=== PATIENT | female | born 1945 | race African-American/Black ===

== ENCOUNTER 2017-01-06 16:18 | Emergency (ER) | payer MEDICARE, MEDICAID ==
[~2017-01-06] VITALS: Ht 165.1 cm; Wt 92.1 kg
[2017-01-06] MEDS ORDERED: Tetracaine 0.5% Opth Soln RIGHT EYE ONE (16:30)
[2017-01-06] MEDS ORDERED: Morphine Sulfate 4mg/ml Inj IVP ONE ×2 (16:30→18:15)
[2017-01-06 16:48] VITALS: BP 193/81
[2017-01-06 16:59] LABS: BASOPHILS % (AUTO) 0.6 % (0.0-2.0); EOSINOPHILS % (AUTO) 0.8 % (0.0-3.0); LYMPHOCYTES % (AUTO) 24.1 % (20.0-45.0); MEAN CORPUSCULAR HEMOGLOBIN 31.1 PG (27.0-31.0); MEAN CORPUSCULAR VOLUME 92 FL (80-99); MEAN PLATELET VOLUME 10.5 FL (6.5-10.1); MONOCYTES % (AUTO) 6.9 % (1.0-10.0); NEUTROPHILS % (AUTO) 67.6 % (45.0-75.0); PLATELET COUNT 143 K/UL (150-450); RED BLOOD COUNT 4.14 M/UL (4.20-5.40); RED CELL DISTRIBUTION WIDTH 12.9 % (11.6-14.8)
[2017-01-06 17:07] LABS: INR 0.9 (0.9-1.1); PROTHROMBIN TIME 9.9 SEC (9.30-11.50)
[2017-01-06 17:12] LABS: TROPONIN I < 0.30 ng/mL (<=0.30)
[2017-01-06 17:13] LABS: ALANINE AMINOTRANSFERASE 10 U/L (3-33); ALBUMIN/GLOBULIN RATIO 1.4 (1.0-2.7); ANION GAP 15 (5-15); ASPARTATE AMINO TRANSFERASE 14 U/L (5-40); CALCIUM 9.4 mg/dL (8.6-10.2); CARBON DIOXIDE 27 mEQ/L (20-30); CHLORIDE 99 mEQ/L (98-107); CREATININE 0.9 mg/dL (0.5-0.9); HEMOLYSIS 4; POTASSIUM 3.6 mEQ/L (3.4-4.9); SODIUM 141 mEQ/L (135-145); TOTAL PROTEIN 6.9 g/dL (6.6-8.7)
[2017-01-06] MEDS ORDERED: Fluorescein Strips ONE (17:17)
[2017-01-06 17:23] LABS: CKMB 1.6 ng/mL (< 3.8)
[2017-01-06] MEDS ORDERED: Fluorescein Strips BOTH EYES ONE (17:30)
[2017-01-06] MEDS ORDERED: Pred Forte 1% Opth Susp 1ml RIGHT EYE ONE (18:00)
[2017-01-06] MEDS ORDERED: acetaZOLAMIDE 500mg Inj IVP ONE (18:00)
[2017-01-06 18:48] VITALS: BP 177/81
[2017-01-06] MEDS ORDERED: Maxitrol Opth Oint 3.5gm RIGHT EYE ONE (19:00)
[2017-01-06] MEDS ORDERED: NORCO 5-325 TA1 EACH ORAL (19:16)
[2017-01-06 19:41] VITALS: BP 177/81
--- NOTE | 2017-01-07 08:32 | Emergency Room Report ---
History of Present Illness General Chief Complaint: Pain Source: EMS Present Illness HPI 71-year-old female presents to ED with right eye pain. Patient brought in by ambulance, crying in pain. Patient states that in end of November she had cataract surgery on the right eye. Patient states that she has had pain since the surgery. States that the eye drops are not helping. Pain is a 10 out of 10, throbbing, nonradiating. Patient states her vision is blurry. No aggravating or relieving factors. Denies any other associated symptom Allergies: Coded Allergies: No Known Allergies (Unverified , 01/06/17) Patient History Past Medical History: HTN Past Surgical History: none Pertinent Family History: none Social History: Denies: alcohol use, drug use, smoking Now: No Immunizations: UTD Reviewed Nursing Documentation: PMH: Agreed, PSxH: Agreed Nursing Documentation-PMH Past Medical History: No History, Except For Hx Cardiac Problems: Yes - [place] x 2 in 2013 Hx Hypertension: Yes Review of Systems All Other Systems: negative except mentioned in HPI Physical Exam Vital Signs Date Time Temp Pulse Resp B/P Pulse Ox O2 Delivery O2 Flow Rate FiO2 01/06/17 16:12 98.2 69 17 193/81 98 Room Air Sp02 EP Interpretation: reviewed, normal General Appearance: alert, GCS 15, non-toxic, moderate distress Head: normocephalic Eyes: right eye other - injected conjunctiva. contact lens covering eye, left eye EOMI, left eye PERRL, left eye normal inspection ENT: normal ENT inspection Neck: normal inspection Respiratory: normal inspection Cardiovascular #1: normal inspection Gastrointestinal: normal inspection Rectal: deferred Genitourinary: no CVA tenderness Musculoskeletal: normal inspection Neurologic: alert, oriented x3, responsive, motor strength/tone normal, sensory intact, speech normal Psychiatric: normal inspection Skin: normal inspection Lymphatic: normal inspection Medical Decision Making Diagnostic Impression: Primary Impression: Eye pain Qualified Codes: H57.11 - Ocular pain, right eye Additional Impression: S/P cataract surgery Qualified Codes: Z98.41 - Cataract extraction status, right eye ER Course 71-year-old female presents to ED complaining of right eye pain. Status post cataract surgery Differential-acute angle glaucoma, conjunctivitis, corneal abrasion Patient placed on stretcher. After initial history, physical exam reveals an elderly female in mild distress. On exam there is an injected right eye. I am unable to adequately visualize the cornea. I spoke to Dr. Sang Eddy who performed the cataract surgery. Recommended that I check for corneal abrasion Apply tetracaine and fluorescein. However I was unable to identify any corneal abrasion Dr Eddy recalls that patient had a followup appointment after the surgery in which he noted a corneal abrasion. He placed the patient on prednisone drops, antibiotics drops and placed a contact lens cover dressing over the right cornea which is why I am unable to adequately visualize for any corneal abrasion Recommends that we check for ocular pressures. However patient is in extreme pain. I ordered acetazolamide IV and predforte drops On reassessment the pain has markedly improved. I did check ocular pressures at that time which were in the 20s Discussed case with Dr Eddy; he believes the patient can be discharged at this time prompt followup in the morning Placed Maxitrol ointment over the eye and applied an eye patch. Diagnoses-eye pain, status post cataract surgery Stable and discharged to home with prescription for [place]. Followup with ophthalmology. Return to ED if symptoms recur or worsen Labs Test 01/06/17 16:40 White Blood Count 9.0 K/UL (4.8-10.8) Red Blood Count 4.14 M/UL (4.20-5.40) Hemoglobin 12.9 G/DL (12.0-16.0) Hematocrit 37.9 % (37.0-47.0) Mean Corpuscular Volume 92 FL (80-99) Mean Corpuscular Hemoglobin 31.1 PG (27.0-31.0) Mean Corpuscular Hemoglobin Concent 34.0 G/DL (32.0-36.0) Red Cell Distribution Width 12.9 % (11.6-14.8) Platelet Count 143 K/UL (150-450) Mean Platelet Volume 10.5 FL (6.5-10.1) Neutrophils (%) (Auto) 67.6 % (45.0-75.0) Lymphocytes (%) (Auto) 24.1 % (20.0-45.0) Monocytes (%) (Auto) 6.9 % (1.0-10.0) Eosinophils (%) (Auto) 0.8 % (0.0-3.0) Basophils (%) (Auto) 0.6 % (0.0-2.0) Prothrombin Time 9.9 SEC (9.30-11.50) Prothromb Time International Ratio 0.9 (0.9-1.1) Activated Partial Thromboplast Time 26 SEC (23-33) Sodium Level 141 mEQ/L (135-145) Potassium Level 3.6 mEQ/L (3.4-4.9) Chloride Level 99 mEQ/L (98-107) Carbon Dioxide Level 27 mEQ/L (20-30) Anion Gap 15 (5-15) Blood Urea Nitrogen 15 mg/dL (7-23) Creatinine 0.9 mg/dL (0.5-0.9) Estimat Glomerular Filtration Rate mL/min (>60) Glucose Level 109 mg/dL (74-106) Calcium Level 9.4 mg/dL (8.6-10.2) Total Bilirubin 0.2 mg/dL (0.0-1.2) Aspartate Amino Transf (AST/SGOT) 14 U/L (5-40) Alanine Aminotransferase (ALT/SGPT) 10 U/L (3-33) Alkaline Phosphatase 70 U/L (35-104) Total Creatine Kinase 88 U/L (26-140) Creatine Kinase MB 1.6 ng/mL (< 3.8) Creatine Kinase MB Relative Index 1.8 Troponin I < 0.30 ng/mL (<=0.30) Total Protein 6.9 g/dL (6.6-8.7) Albumin 4.1 g/dL (3.5-5.2) Globulin 2.8 g/dL Albumin/Globulin Ratio 1.4 (1.0-2.7) Last Vital Signs Date Time Temp Pulse Resp B/P Pulse Ox O2 Delivery O2 Flow Rate FiO2 01/06/17 19:41 98.2 62 17 177/81 98 Room Air Status: improved Disposition: HOME, SELF-CARE Condition: Stable Scripts Hydrocodone Bit/Acetaminophen 5-325* ([place] 5-325*) 1 Each Tablet 1 TAB ORAL Q6H Y for For Pain, #10 TAB 0 Refills Prov: SUZAN SALDANA M.D. 01/06/17 Referrals: SANG EDDY M.D. NOT CHOSEN GEN/,REFERRING (PCP) Patient Instructions: Corneal Abrasion, [id number] SUZAN SALDANA M.D. Jan 07, 2017 08:32
== END 2017-01-06 19:42 | disposition home or self-care (01) ==
LOC: EDBD 16:18 → EMR 19:19
DX: H57.11 Ocular pain, right eye (principal); Z98.41 Cataract extraction status, right eye; I10 Essential (primary) hypertension; I25.2 Old myocardial infarction
CPT/HCPCS: 36415; 80053; 82550; 82553; 84484; 85025; 85610; 85730; 96374; 96375; 99284; J1120; J2270

== ENCOUNTER 2017-03-11 08:57 | Inpatient (IN) | payer MEDICARE, MEDICAID ==
[~2017-03-11] VITALS: Ht 167.6 cm; Wt 92.1 kg
[~2017-03-11 08:57] MED LIST: NORCO 5-325 TA1 EACH ORAL
[2017-03-11 09:06] VITALS: BP 197/76
[2017-03-11] MEDS ORDERED: AZITHROMYCIN250 MG ORAL (09:13)
[2017-03-11 09:40] VITALS: BP 159/87
[2017-03-11] MEDS ORDERED: Morphine Sulfate 4mg/ml Inj IVP ONE ×2 (09:45→13:15)
[2017-03-11 10:39] LABS: BASOPHILS % (AUTO) 0.8 % (0.0-2.0); EOSINOPHILS % (AUTO) 1.1 % (0.0-3.0); LYMPHOCYTES % (AUTO) 21.5 % (20.0-45.0); MEAN CORPUSCULAR HEMOGLOBIN 30.1 PG (27.0-31.0); MEAN CORPUSCULAR HGB CONC 32.7 G/DL (32.0-36.0); MEAN CORPUSCULAR VOLUME 92 FL (80-99); MEAN PLATELET VOLUME 10.5 FL (6.5-10.1); MONOCYTES % (AUTO) 10.6 % (1.0-10.0); NEUTROPHILS % (AUTO) 66.1 % (45.0-75.0); PLATELET COUNT 144 K/UL (150-450); WHITE BLOOD COUNT 6.7 K/UL (4.8-10.8)
[2017-03-11 10:40] LABS: ALANINE AMINOTRANSFERASE 11 U/L (3-33); ALBUMIN/GLOBULIN RATIO 1.6 (1.0-2.7); ANION GAP 11 (5-15); ASPARTATE AMINO TRANSFERASE 13 U/L (5-40); CARBON DIOXIDE 27 mEQ/L (20-30); CHLORIDE 104 mEQ/L (98-107); CREATININE 0.8 mg/dL (0.5-0.9); HEMOLYSIS 3; POTASSIUM 3.6 mEQ/L (3.4-4.9); SODIUM 142 mEQ/L (135-145); TOTAL PROTEIN 7.1 g/dL (6.6-8.7)
[2017-03-11 11:15] VITALS: BP 165/77
--- NOTE | 2017-03-11 12:12 | Diagnostic Imaging Report ---
Indication: PAIN Technique: IV administration nonionic contrast Spiral acquisitions obtained through the phase Multiplanar reconstructions were generated. Total dose length product 602 mGycm. CTDIvol(s) 20 mGy. Radiation dose was minimized using automated exposure control Comparison: None Findings: Very questionable asymmetric slight thickening of the right earlobe as compared to the left. Otherwise, no significant superficial facial soft tissue swelling or other abnormality demonstrated. A small calcification is seen in the inferior aspect of the left parotid gland. The parotid and submandibular glands are otherwise unremarkable. No cervical mass or adenopathy demonstrated. No evidence of facial abscess. There is evidence of prior right and possibly left cataract surgery. The optic globes and retroseptal orbits are otherwise unremarkable. No evidence of significant intracranial enhancement. The sinuses are clear. Bones are intact. The visualized arteries and veins are unremarkable. Impression: Equivocal very slight thickening of the inferior right lobe as compared to the left. If real, this should be clinically evident, could indicate mild synovitis changes No other abnormality to explain stated clinical history of right ear and face pain Calcification at the inferior aspect of the left parotid gland. Of uncertain significance, could represent a small sialolith but very peripheral location makes this less likely. Could also represent a capsular calcification Incidental findings as described The CT scanner at [facility] is accredited by the [employer] and the scans are performed using protocols designed to limit radiation exposure to as low as reasonably achievable to attain images of sufficient resolution adequate for diagnostic evaluation.
--- NOTE | 2017-03-11 12:14 | Diagnostic Imaging Report ---
Indications: Headache, right face and right ear pain Technique: Spiral acquisitions obtained through the brain. Angled axial and coronal 5 x 5 mm slices were reconstructed. Total dose length product 1431 mGycm. CTDI vol(s) 70 mGy. Dose reduction achieved using automated exposure control Comparison: None Findings: There is mild age-related enlargement of ventricles and extra-axial CSF spaces. There is mild periventricular deep white matter chronic ischemic change. There is a lacunar infarct in the anterior limb of left internal capsule, age indeterminate. Normal sparks-white differentiation otherwise. Intact calvarium. Visualized orbits and sinuses are unremarkable. Impression: Negative for acute intracranial bleed or mass effect. Age indeterminate lacunar infarct anterior limb right internal capsule. Consider MRI for better characterization if clinically indicated Other mild chronic and age-related changes, as detailed above The CT scanner at [facility] is accredited by the [employer] and the scans are performed using protocols designed to limit radiation exposure to as low as reasonably achievable to attain images of sufficient resolution adequate for diagnostic evaluation.
[2017-03-11] MEDS ORDERED: Clindamycin 600mg 50 ML IVPB ONE (13:00)
[2017-03-11 14:11] VITALS: BP 146/68
[2017-03-11] MEDS ORDERED: DuoNeb 0.5-3(2.5)mg/3ml neb HHN PRN (15:30)
[2017-03-11] MEDS ORDERED: Miralax 17gm pkt ORAL PRN (15:30)
[2017-03-11] MEDS ORDERED: Nitroglycerin Subl 0.4mg tab (Bottle Of 25) SL PRN (15:30)
--- NOTE | 2017-03-11 15:55 | Emergency Room Report ---
History of Present Illness General Chief Complaint: Pain Source: Patient Present Illness HPI 71 yo F hx of htn pw R sided facial pain x 3 days. states she saw a doctor who gave her rx for azithrromycin which has not been helping. states R ear pain now spreading to head and face.+fever and chills. no blurry vision, neck pain, n/v. Allergies: Coded Allergies: No Known Allergies (Unverified , 01/06/17) Patient History Past Surgical History: none Pertinent Family History: none Nursing Documentation-[facility] Past Medical History: No History, Except For Hx Cardiac Problems: Yes - [place] x 2 in 2013 Hx Hypertension: Yes Review of Systems Constitutional: Reports: chills, fever ENT: Reports: ear pain All Other Systems: negative except mentioned in HPI Physical Exam Vital Signs Date Time Temp Pulse Resp B/P Pulse Ox O2 Delivery O2 Flow Rate FiO2 03/11/17 09:06 99.5 63 20 197/76 97 Room Air Sp02 EP Interpretation: normal General Appearance: normal inspection, well appearing, alert, GCS 15, non-toxic , moderate distress - appears to be in pain Head: normocephalic, atraumatic Eyes: bilateral eye EOMI, bilateral eye PERRL, bilateral eye normal inspection ENT: other - R ear with effusion/tm erythematous/bulging. TTP R mastoid. TTP R face with mild swelling. 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 facial ceelulitis vs. deep facial infection vs mastoiditis PLAN labs paincontrol IV abx CT head/facial ER course patient received iv abx, pain control, feels sligjhtly better continues to be tender in region CT facial performed: Impression: Equivocal very slight thickening of the inferior right lobe as compared to the left. If real, this should be clinically evident, could indicate mild synovitis changes Disposition: patient will require admission for facial cellulitis and monitoring of the infection, to be tx with iv abx CT/MRI/US Diagnostic Results CT/MRI/US Diagnostic Results : Impression Impression: Equivocal very slight thickening of the inferior right lobe as compared to the left. If real, this should be clinically evident, could indicate mild synovitis changes Last Vital Signs Date Time Temp Pulse Resp B/P Pulse Ox O2 Delivery O2 Flow Rate FiO2 03/11/17 14:11 99.0 83 19 146/68 99 Room Air Condition: Serious Referrals: NOT CHOSEN IPA/,REFERRING (PCP) Tacos Andrade M.D. Mar 11, 2017 15:55
[2017-03-11 15:58] VITALS: BP 152/97
[2017-03-11] MEDS ORDERED: Morphine Sulfate 2mg/ml Inj IVP ONE (16:30)
--- NOTE | 2017-03-11 17:11 | Infectious Diseases Prog Note ---
Assessment/Plan Problems: (1) probably right facial herpes zoster r/o secondary bacterial abscess Assessment & Plan: continue acyclovir iv for now , and pain management, will treat for 14 days (2) Otitis media of right ear Assessment & Plan: will start vancomycin , cefepime and flagyl empirically, will send culture from the ear drainage , recommend ENT eval (3) Facial cellulitis Assessment & Plan: suspect complication from right ear infection, continue wide spectrum antibiotics (4) Sepsis Assessment & Plan: due to phillip above, will send blood culture, and start vancomycin, cefepime and flagyl empirically Subjective Allergies: Coded Allergies: No Known Allergies (Unverified , 01/06/17) Objective Vital Signs Last 24 Hour Vital Signs Date Time Temp Pulse Resp B/P Pulse Ox O2 Delivery O2 Flow Rate FiO2 03/11/17 15:58 98.7 87 17 152/97 99 Room Air 03/11/17 14:11 99.0 83 19 146/68 99 Room Air 03/11/17 11:15 99.0 71 20 165/77 98 Room Air 03/11/17 09:40 99.5 67 17 159/87 98 Room Air 03/11/17 09:06 99.5 63 20 197/76 97 Room Air 03/11/17 09:06 99.5 63 20 197/76 97 Room Air Height (Feet): 5 Height (Inches): 6.00 Weight (Pounds): 203 Laboratory Tests Test 03/11/17 10:04 White Blood Count 6.7 K/UL (4.8-10.8) Red Blood Count 4.30 M/UL (4.20-5.40) Hemoglobin 13.0 G/DL (12.0-16.0) Hematocrit 39.6 % (37.0-47.0) Mean Corpuscular Volume 92 FL (80-99) Mean Corpuscular Hemoglobin 30.1 PG (27.0-31.0) Mean Corpuscular Hemoglobin Concent 32.7 G/DL (32.0-36.0) Red Cell Distribution Width 13.0 % (11.6-14.8) Platelet Count 144 K/UL (150-450) L Mean Platelet Volume 10.5 FL (6.5-10.1) H Neutrophils (%) (Auto) 66.1 % (45.0-75.0) Lymphocytes (%) (Auto) 21.5 % (20.0-45.0) Monocytes (%) (Auto) 10.6 % (1.0-10.0) H Eosinophils (%) (Auto) 1.1 % (0.0-3.0) Basophils (%) (Auto) 0.8 % (0.0-2.0) Sodium Level 142 mEQ/L (135-145) Potassium Level 3.6 mEQ/L (3.4-4.9) Chloride Level 104 mEQ/L (98-107) Carbon Dioxide Level 27 mEQ/L (20-30) Anion Gap 11 (5-15) Blood Urea Nitrogen 10 mg/dL (7-23) Creatinine 0.8 mg/dL (0.5-0.9) Estimat Glomerular Filtration Rate mL/min (>60) Glucose Level 102 mg/dL (74-106) Calcium Level 11.0 mg/dL (8.6-10.2) H Total Bilirubin 0.4 mg/dL (0.0-1.2) Aspartate Amino Transf (AST/SGOT) 13 U/L (5-40) Alanine Aminotransferase (ALT/SGPT) 11 U/L (3-33) Alkaline Phosphatase 67 U/L (35-104) Total Protein 7.1 g/dL (6.6-8.7) Albumin 4.4 g/dL (3.5-5.2) Globulin 2.7 g/dL Albumin/Globulin Ratio 1.6 (1.0-2.7) Current Medications Medications (Trade) Dose Ordered Sig/Judith Route PRN Reason Start Time Stop Time Status Last Admin Dose Admin Acetaminophen (Tylenol) 650 mg Q4H PRN ORAL fever 03/11/17 15:30 04/10/17 15:29 UNV Acetaminophen/ Hydrocodone Bitart ([place] 5/325) 1 tab Q6H PRN ORAL For Pain 03/11/17 15:30 03/18/17 15:29 UNV Albuterol/ Ipratropium (DuoNeb 0.5-3(2.5)mg/3ml) 3 ml EVERY 4 HOURS PRN HHN Shortness of Breath 03/11/17 15:30 03/16/17 15:29 UNV Cefepime HCl/ Dextrose (Maxipime/D5W) 110 ml @ 220 mls/hr EVERY 12 HOURS IV 03/11/17 21:00 03/18/17 20:59 UNV Dextrose (Dextrose 50%) STAT PRN IV Hypoglycemia 03/11/17 15:30 04/10/17 15:29 UNV Heparin Sodium (Porcine) 5000 units 5,000 units EVERY 12 HOURS SUBQ 03/11/17 21:00 04/10/17 20:59 UNV Morphine Sulfate (Morphine Sulfate) 2 mg EVERY 4 HOURS PRN IVP Moderate Pain (Pain Scale 4-6) 03/11/17 15:30 03/18/17 15:29 UNV Nitroglycerin (Ntg) 0.4 mg Every 5 Minutes PRN SL Prn Chest Pain 03/11/17 15:30 04/10/17 15:29 UNV Ondansetron HCl (Zofran) 4 mg Q6H PRN IVP Nausea & Vomiting 03/11/17 15:30 04/10/17 15:29 UNV Polyethylene Glycol (Miralax) 17 gm DAILYPRN PRN ORAL Constipation 03/11/17 15:30 04/10/17 15:29 UNV Temazepam (Restoril) 15 mg HSPRN PRN ORAL Insomnia 03/11/17 15:30 03/18/17 15:29 UNV Vancomycin HCl 1 gm/Dextrose 275 ml @ 183.3 mls/ hr Q24H IV 03/12/17 00:30 03/17/17 00:29 UNV Tyrese Muniz M.D. Mar 11, 2017 17:11
[2017-03-11] MEDS: Norco 5mg/325mg tab ORAL PRN (18:40)
[2017-03-11] MEDS: metroNIDAZOLE 500mg 100 ML IVPB SCH ×2 (18:40→23:48)
--- NOTE | 2017-03-11 20:13 | Consultation ---
History of Present Illness General Chief Complaint: Pain Present Illness Allergies: Coded Allergies: No Known Allergies (Unverified , 01/06/17) Medication History Scheduled Azithromycin* (Zithromax*), 250 MG ORAL DAILY, (Reported) Scheduled PRN Hydrocodone Bit/Acetaminophen 5-325* ([place] 5-325*), 1 TAB ORAL Q6H PRN for For Pain Patient History Healthcare decision maker Resuscitation status Full Code Advanced Directive on File Physical Exam Last 24 Hour Vital Signs Date Time Temp Pulse Resp B/P Pulse Ox O2 Delivery O2 Flow Rate FiO2 03/11/17 19:45 98.7 03/11/17 15:58 98.7 87 17 152/97 99 Room Air 03/11/17 14:11 99.0 83 19 146/68 99 Room Air 03/11/17 11:15 99.0 71 20 165/77 98 Room Air 03/11/17 09:40 99.5 67 17 159/87 98 Room Air 03/11/17 09:06 99.5 63 20 197/76 97 Room Air 03/11/17 09:06 99.5 63 20 197/76 97 Room Air Laboratory Tests Test 03/11/17 10:04 White Blood Count 6.7 K/UL (4.8-10.8) Red Blood Count 4.30 M/UL (4.20-5.40) Hemoglobin 13.0 G/DL (12.0-16.0) Hematocrit 39.6 % (37.0-47.0) Mean Corpuscular Volume 92 FL (80-99) Mean Corpuscular Hemoglobin 30.1 PG (27.0-31.0) Mean Corpuscular Hemoglobin Concent 32.7 G/DL (32.0-36.0) Red Cell Distribution Width 13.0 % (11.6-14.8) Platelet Count 144 K/UL (150-450) L Mean Platelet Volume 10.5 FL (6.5-10.1) H Neutrophils (%) (Auto) 66.1 % (45.0-75.0) Lymphocytes (%) (Auto) 21.5 % (20.0-45.0) Monocytes (%) (Auto) 10.6 % (1.0-10.0) H Eosinophils (%) (Auto) 1.1 % (0.0-3.0) Basophils (%) (Auto) 0.8 % (0.0-2.0) Sodium Level 142 mEQ/L (135-145) Potassium Level 3.6 mEQ/L (3.4-4.9) Chloride Level 104 mEQ/L (98-107) Carbon Dioxide Level 27 mEQ/L (20-30) Anion Gap 11 (5-15) Blood Urea Nitrogen 10 mg/dL (7-23) Creatinine 0.8 mg/dL (0.5-0.9) Estimat Glomerular Filtration Rate mL/min (>60) Glucose Level 102 mg/dL (74-106) Calcium Level 11.0 mg/dL (8.6-10.2) H Total Bilirubin 0.4 mg/dL (0.0-1.2) Aspartate Amino Transf (AST/SGOT) 13 U/L (5-40) Alanine Aminotransferase (ALT/SGPT) 11 U/L (3-33) Alkaline Phosphatase 67 U/L (35-104) Total Protein 7.1 g/dL (6.6-8.7) Albumin 4.4 g/dL (3.5-5.2) Globulin 2.7 g/dL Albumin/Globulin Ratio 1.6 (1.0-2.7) Height (Feet): 5 Height (Inches): 6.00 Weight (Pounds): 203 Medications Current Medications Medications (Trade) Dose Ordered Sig/Judith Route PRN Reason Start Time Stop Time Status Last Admin Dose Admin Acetaminophen (Tylenol) 650 mg Q4H PRN ORAL fever 03/11/17 15:30 04/10/17 15:29 Acetaminophen/ Hydrocodone Bitart ([place] 5/325) 1 tab Q6H PRN ORAL For Pain 4-6 03/11/17 15:30 03/18/17 15:29 03/11/17 18:40 Albuterol/ Ipratropium 3 ml 3 ml Q4H PRN HHN Shortness of Breath 03/11/17 15:30 03/16/17 15:29 Cefepime HCl/ Dextrose (Maxipime/D5W) 110 ml @ 220 mls/hr Q24H IV 03/11/17 20:00 03/18/17 19:59 Dextrose (Dextrose 50%) STAT PRN IV Hypoglycemia 03/11/17 15:30 04/10/17 15:29 Heparin Sodium (Porcine) 5000 units 5,000 units EVERY 12 HOURS SUBQ 03/11/17 21:00 04/10/17 20:59 Metronidazole (Flagyl) 100 ml @ 100 mls/hr Q6HR IVPB 03/11/17 18:30 03/18/17 18:29 03/11/17 18:40 Morphine Sulfate (Morphine Sulfate) 2 mg Q4H PRN IVP SEVERE PAIN 03/11/17 15:30 03/18/17 15:29 Nitroglycerin (Ntg) 0.4 mg Every 5 Minutes PRN SL Prn Chest Pain 03/11/17 15:30 04/10/17 15:29 Ondansetron HCl (Zofran) 4 mg Q6H PRN IVP Nausea & Vomiting 03/11/17 15:30 04/10/17 15:29 Pantoprazole 40 mg 40 mg EVERY 12 HOURS ORAL 03/11/17 21:00 04/10/17 20:59 Polyethylene Glycol (Miralax) 17 gm DAILYPRN PRN ORAL Constipation 03/11/17 15:30 04/10/17 15:29 Temazepam (Restoril) 15 mg HSPRN PRN ORAL Insomnia 03/11/17 15:30 03/18/17 15:29 Vancomycin HCl (Vanco rx to dose) 1 ea DAILY PRN MISC PRN RX PROTOCOL 03/11/17 17:30 04/10/17 17:29 Vancomycin HCl/ Dextrose 250 ml @ 125 mls/hr ONCE ONCE IVPB 03/11/17 21:00 03/11/17 22:59 Vancomycin HCl/ Dextrose (Vancomycin 1250mg/D5W 250ml) 250 ml @ 166.667 mls/hr Q24H IVPB 03/12/17 21:00 03/17/17 20:59 VALERIE ROBISON Mar 11, 2017 20:13
[2017-03-11 20:27] VITALS: BP 153/65
[2017-03-11] MEDS: Cefepime HCl 2 GM in D5W 110 ML IV SCH (20:30)
[2017-03-11] MEDS ORDERED: Vancomycin 1500mg IVPB ONE (21:00)
[2017-03-11] MEDS: Heparin 5000 units/ml inj SUBQ SCH (21:06)
--- NOTE | 2017-03-11 23:15 | Consultation ---
DATE OF CONSULTATION: REQUESTING PHYSICIAN: Adrian Mac D.O. REASON FOR CONSULTATION: Right ear infection and facial cellulitis, recommendation for antibiotics treatment. HISTORY OF PRESENT ILLNESS: The patient is a 71-year-old female with past medical history of coronary artery disease status post myocardial infarction and hypertension, presented to [facility] emergency room with right ear pain, facial pain with swelling for three days. The patient's symptoms started on Thursday when she noticed a crusty discharge from her right ear. She had continuous drainage since then from the right ear, complains of some hearing loss, and headache associated with the drainage. She received azithromycin as an outpatient by her primary care but no significant improvement. Right ear pain has gotten worse and spread to her face, mainly on the right side. She had fever and chills, neck pain. She was admitted to the hospital for intravenous antibiotics treatment and I was consulted by the primary provider for antibiotic choice and further management. REVIEW OF SYSTEMS: A 14-point of system reviewed were all negative apart from the one I mentioned above in my History and Physical. PAST MEDICAL HISTORY: Significant for coronary artery disease status post [place] in 2013 and hypertension. PAST SURGICAL HISTORY: Negative. MEDICATIONS: She was started on vancomycin and cefepime by the admitting physician. She received clindamycin in the emergency room. For the rest of her medications, please refer to MAR. ALLERGIES: NO KNOWN DRUG ALLERGIES. SOCIAL HISTORY: She is unemployed. Denied using any drugs, tobacco, or alcohol. FAMILY HISTORY: Noncontributory. PHYSICAL EXAMINATION: VITAL SIGNS: Temperature 99, pulse 83, respiration 19, blood pressure 146/68, and saturation 99% on room air. GENERAL: Elderly female, lying in bed, awake, alert, complaining of right facial pain and swelling, not in acute distress HEENT: Normocephalic and atraumatic. Right facial swelling and tenderness. Right ear crusty discharge. Clear discharge from both eyes. Pupils both reactive to light equally with the photophobia mainly on the right side. Normal oral mucosa. No thrush. No blisters. NECK: Mildly stiff but able to move with good range of motion. No lymphadenopathy. CARDIOVASCULAR: Regular rate and rhythm. No murmur or gallop. LUNGS: Clear bilaterally. No wheezing or rhonchi. ABDOMEN: Soft, nontender, and nondistended. Positive bowel sounds. No hepatosplenomegaly or ascites. EXTREMITY: Trace edema. No cyanosis. LABORATORY DATA: Labs showed white count of 6.7, and platelet count of 144,000. BUN 10, creatinine 0.8. IMAGING: Facial bone CT scan showed thickening of the inferior right lobe, calcification at the inferior aspect of the left parotid gland of uncertain significance. Head CT scan showed negative results for acute intracranial bleed or mass effect. ASSESSMENT AND RECOMMENDATION: 1. Otitis media of the right ear. We will start vancomycin, cefepime, and Flagyl empiric treatment. We will send culture from the right ear drainage if possible. Recommend ENT for further evaluation to rule out complication of otitis media. 2. Facial cellulitis suspect complication from right ear infection. Continue wide-spectrum antibiotics. Obtain MRI of the brain for further evaluation to rule out abscess. 3. Sepsis due to the above. We will send blood culture and start vancomycin, cefepime, and Flagyl empiric treatment. 4. probable facial shingles, will start acyclovir if confirmed empirically, consult neurology ID will continue to follow with you. Tyrese Muniz M.D. DR: Faviola JOB#: [id number] CC: JUAN CARLOS
--- NOTE | 2017-03-11 23:30 | History and Physical Report ---
DATE OF ADMISSION: 03/11/2017 TIME SEEN: At 4 p.m. CONSULTANTS: 1. Dr. Torres. 2. Jazlyn Mcgill M.D. CHIEF COMPLAINT: Right facial pain and cellulitis. BRIEF HISTORY: This is a 71-year-old female, who lives at home, presents with three-day history of increasing right facial pain and cellulitis, was not sure whether she had a bug bite. The patient was diagnosed with above, being admitted to medical floor for further treatment. Currently, calm in bed, no complaints, in ER. PAST MEDICAL HISTORY: Hypertension and CVA. PAST SURGICAL HISTORY: , , and back surgery. MEDICATIONS: Vancomycin, heparin, cefepime, [place], dextrose, nitroglycerin, Restoril, Zofran, MiraLax, morphine, Tylenol, and DuoNeb. ALLERGIES: Denies. SOCIAL HISTORY: Positive smoking. Occasional alcohol. No intravenous drug use. FAMILY HISTORY: Noncontributory. REVIEW OF SYSTEMS: No chest pain. No shortness of breath. No nausea. No vomiting. No diarrhea. PHYSICAL EXAMINATION: GENERAL: Calm in bed, oriented x3, in no acute distress. VITAL SIGNS: Temperature is 99 degrees, pulse 83, respirations 19, and blood pressure 146/68. CARDIOVASCULAR: No murmurs. LUNGS: Distant and clear. ABDOMEN: Bowel sounds are positive. Nontender and nondistended. EXTREMITIES: No cyanosis, clubbing, or edema. NEUROLOGICAL: The patient moves all extremities, slightly weak. SKIN: Right facial area is slightly swollen, red, and warm. LABORATORY DATA: Shows platelets 144,000, otherwise CBC is normal. BMP shows calcium of 11, otherwise BMP is normal. ASSESSMENT: Facial cellulitis of the right cheek, hypertension, CVA. PLAN: Resume home medications. CBC and BMP in the morning. Antibiotics per Infectious Diseases. Pain control. Blood pressure control. We will continue to follow the patient. Dr. Torres and Dr. Mcgill to consult. Adrian Mac D.O. DR: Ervin JOB#: [id number] CC:
[2017-03-12 00:08] VITALS: BP 146/71
[2017-03-12] MEDS ORDERED: Vancomycin 1 GM in D5W 275 ML IV SCH (00:30)
[2017-03-12 03:47] VITALS: BP 156/77
[2017-03-12] MEDS: metroNIDAZOLE 500mg 100 ML IVPB SCH ×4 (04:51→23:10)
[2017-03-12] MEDS: Norco 5mg/325mg tab ORAL PRN ×2 (04:52→14:53)
[2017-03-12 07:21] LABS: BASOPHILS % (AUTO) 0.8 % (0.0-2.0); EOSINOPHILS % (AUTO) 1.4 % (0.0-3.0); MEAN CORPUSCULAR HEMOGLOBIN 31.1 PG (27.0-31.0); MEAN CORPUSCULAR HGB CONC 33.5 G/DL (32.0-36.0); MEAN CORPUSCULAR VOLUME 93 FL (80-99); MEAN PLATELET VOLUME 11.1 FL (6.5-10.1); NEUTROPHILS % (AUTO) 62.9 % (45.0-75.0); PLATELET COUNT 140 K/UL (150-450); RED BLOOD COUNT 3.99 M/UL (4.20-5.40)
[2017-03-12 07:41] LABS: ALANINE AMINOTRANSFERASE 9 U/L (3-33); ALBUMIN/GLOBULIN RATIO 1.5 (1.0-2.7); ANION GAP 13 (5-15); ASPARTATE AMINO TRANSFERASE 14 U/L (5-40); CALCIUM 8.9 mg/dL (8.6-10.2); CARBON DIOXIDE 26 mEQ/L (20-30); CHLORIDE 102 mEQ/L (98-107); CREATININE 0.8 mg/dL (0.5-0.9); HEMOLYSIS 5; POTASSIUM 3.7 mEQ/L (3.4-4.9); SODIUM 141 mEQ/L (135-145); TOTAL PROTEIN 6.4 g/dL (6.6-8.7)
[2017-03-12] MEDS: Morphine Sulfate 2mg/ml Inj IVP PRN ×4 (08:02→21:27)
[2017-03-12] MEDS: Heparin 5000 units/ml inj SUBQ SCH ×2 (08:21→21:00)
[2017-03-12 08:27] VITALS: BP 162/84
[2017-03-12 12:32] VITALS: BP 165/93
--- NOTE | 2017-03-12 14:37 | Diagnostic Imaging Report ---
Indications: Right-sided headache and facial pain, craniofacial cellulitis Technique: Sagittal and axial T1 weighted fast spin-echo, axial T2-weighted fat saturated fast spin echo, T2-weighted FLAIR, T2*-weighted gradient echo, and diffusion sequences of the brain were performed prior to IV gadolinium administration. Axial and coronal T1 weighted fast spin-echo was performed following IV gadolinium administration. Findings: Comparison: Noncontrast CT head 03/11/17 Is degraded by motion. Cluster of small circumscribed fluid signal foci anteriorly on the left internal capsule corresponding to CT finding. Multiple partially confluent foci of T2 signal hyperintensity scattered throughout bilateral cerebral periventricular, deep, subcortical white matter. Ventricles, cisterns, sulci are mildly, diffusely prominent. No evidence of mass or hemorrhage, other signal abnormality, mass effect, midline shift, hydrocephalus, or increased intracranial pressure. No restricted diffusion. No abnormal enhancement. Central vascular flow voids preserved. Mild mucoperiosteal thickening in paranasal sinuses. IMPRESSION: No evidence of acute intracranial pathology Cluster of prominent perivascular spaces indeterminate left internal capsule corresponding to vertebral CT finding Multifocal signal change throughout bilateral cerebral white matter, nonspecific, likely chronic microvascular ischemic Age-appropriate atrophy Mild sinus disease Facial soft tissues inadequately evaluated on this exam. Consider dedicated MRI of the face without and with gadolinium for more complete evaluation, as clinically indicated
--- NOTE | 2017-03-12 15:22 | General Progress Note ---
Assessment/Plan Problem List: (1) Eye pain ICD Codes: H57.10 - Ocular pain, unspecified eye SNOMED: 21520641 (2) Cellulitis ICD Codes: L03.90 - Cellulitis, unspecified SNOMED: 676470535 (3) Facial cellulitis ICD Codes: L03.211 - Cellulitis of face SNOMED: 090247072 (4) Otitis media of right ear ICD Codes: H66.91 - Otitis media, unspecified, right ear SNOMED: 88566023 (5) Sepsis ICD Codes: A41.9 - Sepsis, unspecified organism SNOMED: 55057754 Status: stable, progressing, tolerating diet Assessment/Plan abx pain control cbc bmp am ent neuro eval Subjective Constitutional: Reports: weakness Allergies: Coded Allergies: No Known Allergies (Unverified , 01/06/17) All Systems: reviewed and negative except above Subjective sl facial pain Objective Last 24 Hour Vital Signs Date Time Temp Pulse Resp B/P Pulse Ox O2 Delivery O2 Flow Rate FiO2 03/12/17 12:48 98.4 03/12/17 12:32 98.4 73 18 165/93 96 Room Air 03/12/17 09:14 71 22 Room Air 03/12/17 09:13 98 Room Air 03/12/17 09:12 Room Air 21 03/12/17 08:27 98.4 73 18 162/84 96 Room Air 03/12/17 05:51 98.1 03/12/17 03:47 98.1 65 20 156/77 97 Room Air 03/12/17 00:08 97.7 68 20 146/71 98 Room Air 03/11/17 20:27 97.7 70 20 153/65 95 Room Air 03/11/17 15:58 98.7 87 17 152/97 99 Room Air Intake and Output 03/11/17 03/12/17 19:00 07:00 Intake Total 290 ml 560 ml Output Total 700 ml Balance 290 ml -140 ml Intake Oral 240 ml IV Total 50 ml 560 ml Output Urine Total 700 ml # Voids 2 4 # Bowel Movements 1 Laboratory Tests 03/12/17 05:10: White Blood Count 6.0, Red Blood Count 3.99L, Hemoglobin 12.4, Hematocrit 37.0, Mean Corpuscular Volume 93, Mean Corpuscular Hemoglobin 31.1H, Mean Corpuscular Hemoglobin Concent 33.5, Red Cell Distribution Width 13.0, Platelet Count 140L, Mean Platelet Volume 11.1H, Neutrophils (%) (Auto) 62.9, Lymphocytes (%) (Auto) 24.0, Monocytes (%) (Auto) 11.0H, Eosinophils (%) (Auto) 1.4, Basophils (%) ( Auto) 0.8 03/12/17 05:45: Sodium Level 141, Potassium Level 3.7, Chloride Level 102, Carbon Dioxide Level 26, Anion Gap 13, Blood Urea Nitrogen 10, Creatinine 0.8, Estimat Glomerular Filtration Rate , Glucose Level 116H, Calcium Level 8.9, Total Bilirubin 0.4, Aspartate Amino Transf (AST/SGOT) 14, Alanine Aminotransferase (ALT/SGPT) 9, Alkaline Phosphatase 62, Total Protein 6.4L, Albumin 3.9, Globulin 2.5, Albumin/ Globulin Ratio 1.5 Height (Feet): 5 Height (Inches): 6.00 Weight (Pounds): 203 General Appearance: alert EENT: normal ENT inspection Neck: normal alignment Cardiovascular: normal peripheral pulses, normal rate, regular rhythm Respiratory/Chest: chest wall non-tender, lungs clear, normal breath sounds Abdomen: normal bowel sounds, non tender, soft Extremities: normal inspection Edema: no edema noted Arm (L), no edema noted Arm (R), no edema noted Leg (L), no edema noted Leg (R), no edema noted Pedal (L), no edema noted Pedal (R), no edema noted Generalized Neurologic: responsive, motor weakness Skin: normal pigmentation, warm/dry Objective sl r facial swelling and warmth CALIN MICHAEL Mar 12, 2017 15:22
--- NOTE | 2017-03-12 15:59 | Neurology Progress Note ---
Objective Physical Exam Last Vital Signs Date Time Temp Pulse Resp B/P Pulse Ox O2 Delivery O2 Flow Rate FiO2 03/12/17 12:48 98.4 03/12/17 12:32 73 18 165/93 96 Room Air 03/12/17 09:12 21 Laboratory Tests Test 03/12/17 05:10 03/12/17 05:45 White Blood Count 6.0 K/UL (4.8-10.8) Red Blood Count 3.99 M/UL (4.20-5.40) L Hemoglobin 12.4 G/DL (12.0-16.0) Hematocrit 37.0 % (37.0-47.0) Mean Corpuscular Volume 93 FL (80-99) Mean Corpuscular Hemoglobin 31.1 PG (27.0-31.0) H Mean Corpuscular Hemoglobin Concent 33.5 G/DL (32.0-36.0) Red Cell Distribution Width 13.0 % (11.6-14.8) Platelet Count 140 K/UL (150-450) L Mean Platelet Volume 11.1 FL (6.5-10.1) H Neutrophils (%) (Auto) 62.9 % (45.0-75.0) Lymphocytes (%) (Auto) 24.0 % (20.0-45.0) Monocytes (%) (Auto) 11.0 % (1.0-10.0) H Eosinophils (%) (Auto) 1.4 % (0.0-3.0) Basophils (%) (Auto) 0.8 % (0.0-2.0) Sodium Level 141 mEQ/L (135-145) Potassium Level 3.7 mEQ/L (3.4-4.9) Chloride Level 102 mEQ/L (98-107) Carbon Dioxide Level 26 mEQ/L (20-30) Anion Gap 13 (5-15) Blood Urea Nitrogen 10 mg/dL (7-23) Creatinine 0.8 mg/dL (0.5-0.9) Estimat Glomerular Filtration Rate mL/min (>60) Glucose Level 116 mg/dL (74-106) H Calcium Level 8.9 mg/dL (8.6-10.2) Total Bilirubin 0.4 mg/dL (0.0-1.2) Aspartate Amino Transf (AST/SGOT) 14 U/L (5-40) Alanine Aminotransferase (ALT/SGPT) 9 U/L (3-33) Alkaline Phosphatase 62 U/L (35-104) Total Protein 6.4 g/dL (6.6-8.7) L Albumin 3.9 g/dL (3.5-5.2) Globulin 2.5 g/dL Albumin/Globulin Ratio 1.5 (1.0-2.7) Impression/Recommendations Problems: (1) probably right facial herpes zoster r/o secondary bacterial abscess (2) symptomatic Right trigeminal neuralgia ,intractable pain (3) Facial cellulitis Status: stable, progressing, tolerating diet, unchanged Recommendations # [id number] KULWANT CREWS Mar 12, 2017 15:59
[2017-03-12 16:00] VITALS: BP 159/79
--- NOTE | 2017-03-12 16:06 | Infectious Diseases Prog Note ---
Assessment/Plan Problems: (1) probably right facial herpes zoster r/o secondary bacterial abscess Assessment & Plan: continue acyclovir iv for now , and pain management, will treat for 14 days . (2) Otitis media of right ear Assessment & Plan: on vancomycin , cefepime and flagyl empirically, will send culture from the ear drainage , recommend ENT eval (3) Facial cellulitis Assessment & Plan: suspect complication from right ear infection, continue wide spectrum antibiotics (4) Sepsis Assessment & Plan: due to phillip above, will send blood culture, and start vancomycin, cefepime and flagyl empirically Subjective Constitutional: Reports: fatigue HEENT: Reports: congestion, hearing change, visual change Respiratory: Reports: no symptoms Breasts: Reports: no symptoms Cardiovascular: Reports: no symptoms Gastrointestinal/Abdominal: Reports: nausea, vomiting Genitourinary: Reports: no symptoms Neurologic: Reports: headache, numbness, other Psychiatric: Reports: no symptoms Skin: Reports: no symptoms Endocrine: Reports: no symptoms Hematologic: Reports: no symptoms Musculoskeletal: Reports: no symptoms Allergies: Coded Allergies: No Known Allergies (Unverified , 01/06/17) Subjective facial tenderness Objective Vital Signs Last 24 Hour Vital Signs Date Time Temp Pulse Resp B/P Pulse Ox O2 Delivery O2 Flow Rate FiO2 03/12/17 12:48 98.4 03/12/17 12:32 98.4 73 18 165/93 96 Room Air 03/12/17 09:14 71 22 Room Air 03/12/17 09:13 98 Room Air 03/12/17 09:12 Room Air 21 03/12/17 08:27 98.4 73 18 162/84 96 Room Air 03/12/17 05:51 98.1 03/12/17 03:47 98.1 65 20 156/77 97 Room Air 03/12/17 00:08 97.7 68 20 146/71 98 Room Air 03/11/17 20:27 97.7 70 20 153/65 95 Room Air Height (Feet): 5 Height (Inches): 6.00 Weight (Pounds): 203 General Appearance: WD/WN, no acute distress HEENT: normocephalic, atraumatic, anicteric, mucous membranes moist Respiratory/Chest: chest wall non-tender, lungs clear, normal breath sounds, no respiratory distress, no accessory muscle use Cardiovascular: normal peripheral pulses, normal rate, regular rhythm, no gallop/murmur, no JVD Abdomen: normal bowel sounds, soft, non tender, no organomegaly, non distended , no mass, no scars Extremities: no cyanosis, no clubbing Skin: no rash, no lesions Neurologic/Psychiatric: alert, oriented x 3 Laboratory Tests Test 03/12/17 05:10 03/12/17 05:45 White Blood Count 6.0 K/UL (4.8-10.8) Red Blood Count 3.99 M/UL (4.20-5.40) L Hemoglobin 12.4 G/DL (12.0-16.0) Hematocrit 37.0 % (37.0-47.0) Mean Corpuscular Volume 93 FL (80-99) Mean Corpuscular Hemoglobin 31.1 PG (27.0-31.0) H Mean Corpuscular Hemoglobin Concent 33.5 G/DL (32.0-36.0) Red Cell Distribution Width 13.0 % (11.6-14.8) Platelet Count 140 K/UL (150-450) L Mean Platelet Volume 11.1 FL (6.5-10.1) H Neutrophils (%) (Auto) 62.9 % (45.0-75.0) Lymphocytes (%) (Auto) 24.0 % (20.0-45.0) Monocytes (%) (Auto) 11.0 % (1.0-10.0) H Eosinophils (%) (Auto) 1.4 % (0.0-3.0) Basophils (%) (Auto) 0.8 % (0.0-2.0) Sodium Level 141 mEQ/L (135-145) Potassium Level 3.7 mEQ/L (3.4-4.9) Chloride Level 102 mEQ/L (98-107) Carbon Dioxide Level 26 mEQ/L (20-30) Anion Gap 13 (5-15) Blood Urea Nitrogen 10 mg/dL (7-23) Creatinine 0.8 mg/dL (0.5-0.9) Estimat Glomerular Filtration Rate mL/min (>60) Glucose Level 116 mg/dL (74-106) H Calcium Level 8.9 mg/dL (8.6-10.2) Total Bilirubin 0.4 mg/dL (0.0-1.2) Aspartate Amino Transf (AST/SGOT) 14 U/L (5-40) Alanine Aminotransferase (ALT/SGPT) 9 U/L (3-33) Alkaline Phosphatase 62 U/L (35-104) Total Protein 6.4 g/dL (6.6-8.7) L Albumin 3.9 g/dL (3.5-5.2) Globulin 2.5 g/dL Albumin/Globulin Ratio 1.5 (1.0-2.7) Current Medications Medications (Trade) Dose Ordered Sig/Judith Route PRN Reason Start Time Stop Time Status Last Admin Dose Admin Acetaminophen (Tylenol) 650 mg Q4H PRN ORAL fever 03/11/17 15:30 04/10/17 15:29 Acetaminophen/ Hydrocodone Bitart ([place] 5/325) 1 tab Q6H PRN ORAL For Pain 4-6 03/11/17 15:30 03/18/17 15:29 03/12/17 14:53 Acyclovir/Dextrose (Zovirax/D5W) 275 ml @ 275 mls/hr Q8HR IVPB 03/12/17 16:00 04/11/17 15:59 UNV Albuterol/ Ipratropium 3 ml 3 ml Q4H PRN HHN Shortness of Breath 03/11/17 15:30 03/16/17 15:29 Carbamazepine (TEGretol XR) 200 mg EVERY 12 HOURS ORAL 03/12/17 18:00 04/11/17 17:59 Cefepime HCl/ Dextrose (Maxipime/D5W) 110 ml @ 220 mls/hr Q24H IV 03/11/17 20:00 03/18/17 19:59 03/11/17 20:30 Dextrose (Dextrose 50%) STAT PRN IV Hypoglycemia 03/11/17 15:30 04/10/17 15:29 Heparin Sodium (Porcine) 5000 units 5,000 units EVERY 12 HOURS SUBQ 03/11/17 21:00 04/10/17 20:59 03/11/17 21:06 Metronidazole (Flagyl) 100 ml @ 100 mls/hr Q6HR IVPB 03/11/17 18:30 03/18/17 18:29 03/12/17 12:19 Morphine Sulfate 4 mg 4 mg Q4H PRN IVP SEVERE PAIN 03/12/17 15:30 03/19/17 15:29 Nitroglycerin (Ntg) 0.4 mg Every 5 Minutes PRN SL Prn Chest Pain 03/11/17 15:30 04/10/17 15:29 Ondansetron HCl (Zofran) 4 mg Q6H PRN IVP Nausea & Vomiting 03/11/17 15:30 04/10/17 15:29 Pantoprazole 40 mg 40 mg EVERY 12 HOURS ORAL 03/11/17 21:00 04/10/17 20:59 03/12/17 08:23 Polyethylene Glycol (Miralax) 17 gm DAILYPRN PRN ORAL Constipation 03/11/17 15:30 04/10/17 15:29 Temazepam (Restoril) 15 mg HSPRN PRN ORAL Insomnia 03/11/17 15:30 03/18/17 15:29 Vancomycin HCl (Vanco rx to dose) 1 ea DAILY PRN MISC PRN RX PROTOCOL 03/11/17 17:30 04/10/17 17:29 Vancomycin HCl/ Dextrose (Vancomycin 1250mg/D5W 250ml) 250 ml @ 166.667 mls/hr Q24H IVPB 03/12/17 21:00 03/17/17 20:59 Tyrese Muniz M.D. Mar 12, 2017 16:06
[2017-03-12] MEDS: carBAMazepine XR 200mg tab ORAL SCH (17:29)
[2017-03-12] MEDS: Acyclovir 1,000 MG in D5W 275 ML IV SCH (18:23)
--- NOTE | 2017-03-12 19:32 | Consultation ---
DATE OF CONSULTATION: 03/12/2017 NEUROLOGICAL CONSULTATION CONSULTING PHYSICIAN: Umang Loera M.D. REQUESTING PHYSICIAN: Adrian Mac D.O. HISTORY OF PRESENT ILLNESS: This is a 71-year-old female, seen in neurological consultation to evaluate new onset of severe right facial swelling, rash, and pain. The patient informed me that last week, she started to develop a green mucus coming out from her nasal discharges, but then last Thursday in the morning, she woke up and noticed skin lesions on the right face and inner lower lip, with the swelling of right side of the face, as well as severe pain on the right side of the face, right ear, and lower lip. She felt feverish, but she remained at home putting "alcohol applications to the skin," felt no improvement, and with this she went to the emergency room at [facility]. She was examined, was told she has a trigeminal neuralgia, and started on azithromycin. She continued to have progressive pain in the right ear, right side of the head, right facial area, and goes down to the right side of the neck. She felt shivering and feverish. Pain was intractable. With this, she was sent into emergency room, complaining of chills, fevers, and ear ache. Her blood pressure on admission 187/76, respirations 20, heart rate of 63, and temperature 99.5 degrees. [place] that she may have facial cellulitis versus deep facial infection versus mastoiditis. CT scan of the brain was negative for any intracranial abnormalities. No bleed. No mass lesions. Age indeterminate lacunar infarct in right anterior limb internal capsule, otherwise there was a mild chronic age-related changes. CT scan of the facial bones, no acute abnormalities and calcification in the inferior aspect of left parotid gland. There was no evidence of facial abscess. There was evidence of prior bilateral cataract surgery. No intracranial enhancement. Sinuses were clear and was intact. MRI of the brain was requested. This revealed no evidence of acute intracranial pathology. Multifocal signal changes throughout bilateral cerebral white matter, nonspecific, likely representing chronic microvascular disease. Lab work included a normal electrolyte panel except calcium 11.0, on a repeat study was 8.9. Hematology panel unremarkable. The patient was started on Flagyl, Maxipime, vancomycin, Tylenol for pain management, subcutaneous heparin, [place] for pain management, albuterol, morphine for pain management, nitroglycerin, Zofran, Protonix, MiraLAX, and temazepam. PAST MEDICAL HISTORY: History of hypertension, gastroesophageal reflux disease, sleep apnea, now on CPAP, hyperlipidemia, coronary artery disease, and x2 MS in the past. MEDICATIONS: Treatment prior to admission limited to hydrocodone and Zithromax. ALLERGIES: None reported. SOCIAL HISTORY: Lives alone. No alcohol. No drug abuse. Nonsmoker. FAMILY HISTORY: Noncontributory. REVIEW OF SYMPTOMS: A severe sharp shooting pain in the right side of the face intermittently, severe tenderness, and pain on right side of the neck, head, face, and lower lips. Denies chest pain, palpitations, or respiratory problems. Denies abdominal pain or discomfort. No urine or bowel incontinence. PHYSICAL EXAMINATION: GENERAL: A well-developed and well-nourished lady, lying in bed, and in mild distress due to pain. At times, she is squinching her face when acute sharp pain develops. HEENT: Head, normocephalic. There is no evidence of trauma. No otorrhea. No rhinorrhea noted. There is diffuse swelling and acute tenderness on the right side of the face, right buddhist area, right marisol-auricular region, and right lateral neck area. There is skin eruption noted in the right side of the face and inner aspect of lower lip on the right. Tenderness to slight touch diffusely right face, right neck, and head. No visual or hearing abnormalities reported. Eyes examination, unremarkable except slight clear discharge. Ear examination, right and left, no evidence of redness. There is a minor crusting noted on the right. NECK: Meningeal signs negative. EXTREMITIES: Upper and lower extremities without clubbing, cyanosis, or edema. Peripheral pulses 1+ and symmetric. SKIN: No rash. No petechia. GAIT: Not tested, but reportedly stable. MENTAL STATUS: Fully alert and oriented x3 with no evidence of aphasia or apraxia. Cognition is normal. The patient is very upset with ongoing pain. CRANIAL NERVE II: Pupils both responding to light and accommodation. Extraocular movement full range. CRANIAL NERVE V: Normal corneal responses. There is a severe dysesthesia on touch in the right side of the face and neck. Not clear if there is a sensory loss. There is pain, very diffuse, but limited to right side of the face, neck, and lip. CRANIAL NERVE VII: Slight droop of right nasolabial fold, most likely result of swelling. CRANIAL NERVE VIII: Normal hearing. No positional vertigo. CRANIAL NERVE IX THROUGH XII: Tongue is in midline. Unable to open completely mouth due to pain in her right TMJ area. Positive gag response. MOTOR EXAMINATION: Normal muscle tone. Strength 5/5 in all extremities. No involuntary movement. Deep tendon reflexes 1+ symmetric with downgoing toes on both sides. SENSORY EXAM: Normal to pinprick and light touch. IMPRESSION: 1. Acute onset of right face and neck swelling and acute tenderness with skin lesions resembling the herpes zoster. 2. Symptomatic right trigeminal neuralgia in V1, V2, and V3 area. 3. Secondary bacterial abscess in right face and neck. 4. Hypertension. 5. Sleep apnea, on CPAP. 6. Hyperlipidemia. 7. History of coronary artery disease. RECOMMENDATIONS: The patient to continue with a course of antibiotics as ordered by ID. I will add intravenous acyclovir. Start on Tegretol 200 mg b.i.d. and titrate up to 400 mg b.i.d. Pain management. Lab work to include HSV and VZV titers as well as bacterial cultures. Thank you for allowing me to see this interesting patient in neurological consultation. Umang Loera M.D. DR: OSIEL JOB#: [id number] CC:
[2017-03-12] MEDS: Cefepime HCl 2 GM in D5W 110 ML IV SCH (20:01)
[2017-03-12 21:08] VITALS: BP 155/65
[2017-03-12] MEDS: Vancomycin 1250mg/D5W 250ml IVPB SCH (21:25)
--- NOTE | 2017-03-12 21:44 | Pulmonology Progress Note ---
Assessment/Plan Problems: (1) Sepsis (2) Facial cellulitis (3) Otitis media of right ear (4) symptomatic Right trigeminal neuralgia ,intractable pain (5) S/P cataract surgery Assessment/Plan continue abx, check cultures symptomatic treatment pain management Subjective ROS Limited/Unobtainable: No Constitutional: Reports: no symptoms HEENT: Repors: no symptoms Respiratory: Reports: no symptoms Allergies: Coded Allergies: No Known Allergies (Unverified , 01/06/17) Objective Last 24 Hour Vital Signs Date Time Temp Pulse Resp B/P Pulse Ox O2 Delivery O2 Flow Rate FiO2 03/12/17 21:08 96.6 75 20 155/65 99 Room Air 03/12/17 17:41 98.2 03/12/17 16:00 98.2 75 19 159/79 Room Air 03/12/17 15:52 98.4 03/12/17 12:48 98.4 03/12/17 12:32 98.4 73 18 165/93 96 Room Air 03/12/17 09:14 71 22 Room Air 03/12/17 09:13 98 Room Air 03/12/17 09:12 Room Air 21 03/12/17 08:27 98.4 73 18 162/84 96 Room Air 03/12/17 03:47 98.1 65 20 156/77 97 Room Air 03/12/17 00:08 97.7 68 20 146/71 98 Room Air Intake and Output 03/11/17 03/12/17 18:59 06:59 Intake Total 290 ml 560 ml Output Total 700 ml Balance 290 ml -140 ml Intake Oral 240 ml IV Total 50 ml 560 ml Output Urine Total 700 ml # Voids 2 4 # Bowel Movements 1 General Appearance: WD/WN HEENT: normocephalic, atraumatic Respiratory/Chest: chest wall non-tender, lungs clear Breasts: no masses Cardiovascular: normal peripheral pulses Abdomen: normal bowel sounds, soft, non tender Extremities: no cyanosis Laboratory Tests 03/12/17 05:10: White Blood Count 6.0, Red Blood Count 3.99L, Hemoglobin 12.4, Hematocrit 37.0, Mean Corpuscular Volume 93, Mean Corpuscular Hemoglobin 31.1H, Mean Corpuscular Hemoglobin Concent 33.5, Red Cell Distribution Width 13.0, Platelet Count 140L, Mean Platelet Volume 11.1H, Neutrophils (%) (Auto) 62.9, Lymphocytes (%) (Auto) 24.0, Monocytes (%) (Auto) 11.0H, Eosinophils (%) (Auto) 1.4, Basophils (%) ( Auto) 0.8 03/12/17 05:15: C-Reactive Protein, Quantitative 1.5H, Varicella-Zoster IgG Antibody [Pending], Varicella-Zoster IgM Antibody [Pending] 03/12/17 05:45: Sodium Level 141, Potassium Level 3.7, Chloride Level 102, Carbon Dioxide Level 26, Anion Gap 13, Blood Urea Nitrogen 10, Creatinine 0.8, Estimat Glomerular Filtration Rate , Glucose Level 116H, Calcium Level 8.9, Total Bilirubin 0.4, Aspartate Amino Transf (AST/SGOT) 14, Alanine Aminotransferase (ALT/SGPT) 9, Alkaline Phosphatase 62, Total Protein 6.4L, Albumin 3.9, Globulin 2.5, Albumin/ Globulin Ratio 1.5 Current Medications Medications (Trade) Dose Ordered Sig/Judith Route PRN Reason Start Time Stop Time Status Last Admin Dose Admin Acetaminophen (Tylenol) 650 mg Q4H PRN ORAL fever 03/11/17 15:30 04/10/17 15:29 Acetaminophen/ Hydrocodone Bitart ([place] 5/325) 1 tab Q6H PRN ORAL For Pain 4-6 03/11/17 15:30 03/18/17 15:29 03/12/17 14:53 Acyclovir/Dextrose (Zovirax/D5W) 275 ml @ 275 mls/hr Q8HR@0000,1000,1800 IV 03/12/17 18:00 03/19/17 17:59 03/12/17 18:23 Albuterol/ Ipratropium 3 ml 3 ml Q4H PRN HHN Shortness of Breath 03/11/17 15:30 03/16/17 15:29 Carbamazepine (TEGretol XR) 200 mg EVERY 12 HOURS ORAL 03/12/17 18:00 04/11/17 17:59 03/12/17 17:29 Cefepime HCl/ Dextrose (Maxipime/D5W) 110 ml @ 220 mls/hr Q24H IV 03/11/17 20:00 03/18/17 19:59 03/12/17 20:01 Dextrose (Dextrose 50%) STAT PRN IV Hypoglycemia 03/11/17 15:30 04/10/17 15:29 Heparin Sodium (Porcine) 5000 units 5,000 units EVERY 12 HOURS SUBQ 03/11/17 21:00 04/10/17 20:59 03/11/17 21:06 Metronidazole (Flagyl) 100 ml @ 100 mls/hr Q6HR IVPB 03/11/17 18:30 03/18/17 18:29 03/12/17 17:11 Morphine Sulfate 4 mg 4 mg Q4H PRN IVP SEVERE PAIN 03/12/17 15:30 03/19/17 15:29 03/12/17 21:27 Nitroglycerin (Ntg) 0.4 mg Every 5 Minutes PRN SL Prn Chest Pain 03/11/17 15:30 04/10/17 15:29 Ondansetron HCl (Zofran) 4 mg Q6H PRN IVP Nausea & Vomiting 03/11/17 15:30 04/10/17 15:29 03/12/17 21:26 Pantoprazole 40 mg 40 mg EVERY 12 HOURS ORAL 03/11/17 21:00 04/10/17 20:59 03/12/17 21:25 Polyethylene Glycol (Miralax) 17 gm DAILYPRN PRN ORAL Constipation 03/11/17 15:30 04/10/17 15:29 Temazepam (Restoril) 15 mg HSPRN PRN ORAL Insomnia 03/11/17 15:30 03/18/17 15:29 Vancomycin HCl (Vanco rx to dose) 1 ea DAILY PRN MISC PRN RX PROTOCOL 03/11/17 17:30 04/10/17 17:29 Vancomycin HCl/ Dextrose (Vancomycin 1250mg/D5W 250ml) 250 ml @ 166.667 mls/hr Q24H IVPB 03/12/17 21:00 03/17/17 20:59 03/12/17 21:25 VALERIE ROBISON Mar 12, 2017 21:44
[2017-03-13] MEDS: Acyclovir 1,000 MG in D5W 275 ML IV SCH ×3 (00:08→17:49)
[2017-03-13 04:20] VITALS: BP 137/49
[2017-03-13] MEDS: metroNIDAZOLE 500mg 100 ML IVPB SCH ×4 (05:11→22:42)
[2017-03-13 07:22] LABS: BASOPHILS % (AUTO) 0.4 % (0.0-2.0); EOSINOPHILS % (AUTO) 0.1 % (0.0-3.0); LYMPHOCYTES % (AUTO) 9.1 % (20.0-45.0); MEAN CORPUSCULAR HEMOGLOBIN 31.3 PG (27.0-31.0); MEAN CORPUSCULAR HGB CONC 33.8 G/DL (32.0-36.0); MEAN CORPUSCULAR VOLUME 93 FL (80-99); MEAN PLATELET VOLUME 11.8 FL (6.5-10.1); MONOCYTES % (AUTO) 8.9 % (1.0-10.0); NEUTROPHILS % (AUTO) 81.4 % (45.0-75.0); PLATELET COUNT 139 K/UL (150-450); RED BLOOD COUNT 4.16 M/UL (4.20-5.40); RED CELL DISTRIBUTION WIDTH 12.9 % (11.6-14.8); WHITE BLOOD COUNT 9.7 K/UL (4.8-10.8)
[2017-03-13 07:40] LABS: ANION GAP 15 (5-15); CALCIUM 9.2 mg/dL (8.6-10.2); CARBON DIOXIDE 26 mEQ/L (20-30); CHLORIDE 100 mEQ/L (98-107); CREATININE 1.1 mg/dL (0.5-0.9); HEMOLYSIS 2; POTASSIUM 3.4 mEQ/L (3.4-4.9); SODIUM 141 mEQ/L (135-145)
--- NOTE | 2017-03-13 07:43 | Pulmonology Progress Note ---
Assessment/Plan Assessment/Plan ASSESSMENT sepsis probably R facial herpes zoster possible secondary bacterial abscess ( lienal 2 to complication of OM) facial cellulitis OM R ear symptomatic R trigeminal neuralgia HTN [facility] PLAN OF CARE [facility] floor ID and neuro follow IV abx and IV Acyclovir started on Tegretol as per neuro pain management check VZV titer cellulitis likely 2 to OM as per ID CT head, CT facial and MRI brain all noted and reviewed, no acute IC pathology Venous Duplex negative continue CPAP at night BP management, stable, Clonidine prn DVT GI prophylaxis bowel regimen case discussed and evaluated by supervising physician Subjective Allergies: Coded Allergies: No Known Allergies (Unverified , 01/06/17) Subjective afebrile, no leukocytosis pain intermittent no change in vision, no change in hearing Objective Last 24 Hour Vital Signs Date Time Temp Pulse Resp B/P Pulse Ox O2 Delivery O2 Flow Rate FiO2 03/13/17 04:20 99.1 83 18 137/49 96 Room Air 03/13/17 00:07 68 20 Room Air 03/13/17 00:06 Room Air 21 03/13/17 00:06 99 Room Air 03/12/17 21:57 96.6 03/12/17 21:08 96.6 75 20 155/65 99 Room Air 03/12/17 16:00 98.2 75 19 159/79 Room Air 03/12/17 15:52 98.4 03/12/17 12:48 98.4 03/12/17 12:32 98.4 73 18 165/93 96 Room Air 03/12/17 09:14 71 22 Room Air 03/12/17 09:13 98 Room Air 03/12/17 09:12 Room Air 21 03/12/17 08:27 98.4 73 18 162/84 96 Room Air Intake and Output 03/12/17 03/13/17 19:00 07:00 Intake Total 200 ml 835.000 ml Balance 200 ml 835.000 ml IV Total 200 ml 835.000 ml # Voids 5 Objective General: NAD HEENT: NC/AT, mmm, diffuse swelling and acute tenderness on the right side of the face, right sikh area, right marisol-auricular region, and right lateral neck area. Skin eruption noted in the right side of the face and inner aspect of lower lip on the right. TTP /slight touch diffusely right face, right neck, and head. Neck: supple, no JVF, trachea midline Lungs: CTAB Heart: S1S2, RRR, no edema Abdomen: soft, NT/ND, normoactive BS Extremities: no edema, moves all extremities, Neuro: A/A/O x 3, no gross focal Laboratory Tests 03/13/17 05:30: White Blood Count 9.7#, Red Blood Count 4.16L, Hemoglobin 13.0, Hematocrit 38.5 , Mean Corpuscular Volume 93, Mean Corpuscular Hemoglobin 31.3H, Mean Corpuscular Hemoglobin Concent 33.8, Red Cell Distribution Width 12.9, Platelet Count 139L, Mean Platelet Volume 11.8H, Neutrophils (%) (Auto) 81.4H, Lymphocytes (%) (Auto) 9.1L, Monocytes (%) (Auto) 8.9, Eosinophils (%) (Auto) 0.1, Basophils (%) (Auto) 0.4, Sodium Level [Pending], Potassium Level [Pending] , Chloride Level [Pending], Carbon Dioxide Level [Pending], Blood Urea Nitrogen [Pending], Creatinine [Pending], Estimat Glomerular Filtration Rate [Pending], Glucose Level [Pending], Calcium Level [Pending] Current Medications Medications (Trade) Dose Ordered Sig/Judith Route PRN Reason Start Time Stop Time Status Last Admin Dose Admin Acetaminophen (Tylenol) 650 mg Q4H PRN ORAL fever 03/11/17 15:30 04/10/17 15:29 Acetaminophen/ Hydrocodone Bitart ([place] 5/325) 1 tab Q6H PRN ORAL For Pain 4-6 03/11/17 15:30 03/18/17 15:29 03/12/17 14:53 Acyclovir/Dextrose (Zovirax/D5W) 275 ml @ 275 mls/hr Q8HR@0000,1000,1800 IV 03/12/17 18:00 03/19/17 17:59 03/13/17 00:08 Albuterol/ Ipratropium 3 ml 3 ml Q4H PRN HHN Shortness of Breath 03/11/17 15:30 03/16/17 15:29 Carbamazepine (TEGretol XR) 200 mg EVERY 12 HOURS ORAL 03/12/17 18:00 04/11/17 17:59 03/12/17 17:29 Cefepime HCl/ Dextrose (Maxipime/D5W) 110 ml @ 220 mls/hr Q24H IV 03/11/17 20:00 03/18/17 19:59 03/12/17 20:01 Dextrose (Dextrose 50%) STAT PRN IV Hypoglycemia 03/11/17 15:30 04/10/17 15:29 Heparin Sodium (Porcine) 5000 units 5,000 units EVERY 12 HOURS SUBQ 03/11/17 21:00 04/10/17 20:59 03/11/17 21:06 Metronidazole (Flagyl) 100 ml @ 100 mls/hr Q6HR IVPB 03/11/17 18:30 03/18/17 18:29 03/13/17 05:11 Morphine Sulfate 4 mg 4 mg Q4H PRN IVP SEVERE PAIN 03/12/17 15:30 03/19/17 15:29 03/12/17 21:27 Nitroglycerin (Ntg) 0.4 mg Every 5 Minutes PRN SL Prn Chest Pain 03/11/17 15:30 04/10/17 15:29 Ondansetron HCl (Zofran) 4 mg Q6H PRN IVP Nausea & Vomiting 03/11/17 15:30 04/10/17 15:29 03/13/17 03:54 Pantoprazole 40 mg 40 mg EVERY 12 HOURS ORAL 03/11/17 21:00 04/10/17 20:59 03/12/17 21:25 Polyethylene Glycol (Miralax) 17 gm DAILYPRN PRN ORAL Constipation 03/11/17 15:30 04/10/17 15:29 Temazepam (Restoril) 15 mg HSPRN PRN ORAL Insomnia 03/11/17 15:30 03/18/17 15:29 Vancomycin HCl (Vanco rx to dose) 1 ea DAILY PRN MISC PRN RX PROTOCOL 03/11/17 17:30 04/10/17 17:29 Vancomycin HCl/ Dextrose (Vancomycin 1250mg/D5W 250ml) 250 ml @ 166.667 mls/hr Q24H IVPB 03/12/17 21:00 03/17/17 20:59 03/12/17 21:25 Madonna Alexandra NP (Vanchtein) Mar 13, 2017 07:43
[2017-03-13 08:18] VITALS: BP 151/77
[2017-03-13] MEDS: Heparin 5000 units/ml inj SUBQ SCH ×2 (08:33→20:56)
[2017-03-13] MEDS: carBAMazepine XR 200mg tab ORAL SCH ×2 (08:33→20:55)
[2017-03-13] MEDS: Norco 5mg/325mg tab ORAL PRN ×2 (11:14→17:47)
[2017-03-13 11:35] VITALS: BP 150/76
--- NOTE | 2017-03-13 14:48 | General Progress Note ---
Assessment/Plan Problem List: (1) Eye pain ICD Codes: H57.10 - Ocular pain, unspecified eye SNOMED: 52304107 (2) Cellulitis ICD Codes: L03.90 - Cellulitis, unspecified SNOMED: 247817675 (3) Facial cellulitis ICD Codes: L03.211 - Cellulitis of face SNOMED: 395852515 (4) Otitis media of right ear ICD Codes: H66.91 - Otitis media, unspecified, right ear SNOMED: 07700831 (5) Sepsis ICD Codes: A41.9 - Sepsis, unspecified organism SNOMED: 60056375 Status: stable, progressing, tolerating diet Assessment/Plan abx pain control cbc bmp am dc plan w hh if clear Subjective Constitutional: Reports: weakness Allergies: Coded Allergies: No Known Allergies (Unverified , 01/06/17) All Systems: reviewed and negative except above Subjective sl facial pain Objective Last 24 Hour Vital Signs Date Time Temp Pulse Resp B/P Pulse Ox O2 Delivery O2 Flow Rate FiO2 03/13/17 11:35 99.0 70 20 150/76 93 Room Air 03/13/17 08:27 Room Air 03/13/17 08:26 94 Room Air 03/13/17 08:25 86 16 Room Air 03/13/17 08:18 97.9 74 20 151/77 96 Room Air 03/13/17 04:20 99.1 83 18 137/49 96 Room Air 03/13/17 00:07 68 20 Room Air 03/13/17 00:06 Room Air 21 03/13/17 00:06 99 Room Air 03/12/17 21:57 96.6 03/12/17 21:08 96.6 75 20 155/65 99 Room Air 03/12/17 16:00 98.2 75 19 159/79 Room Air 03/12/17 15:52 98.4 Intake and Output 03/12/17 03/13/17 19:00 07:00 Intake Total 200 ml 835.000 ml Balance 200 ml 835.000 ml IV Total 200 ml 835.000 ml # Voids 5 Laboratory Tests 03/13/17 05:30: White Blood Count 9.7#, Red Blood Count 4.16L, Hemoglobin 13.0, Hematocrit 38.5 , Mean Corpuscular Volume 93, Mean Corpuscular Hemoglobin 31.3H, Mean Corpuscular Hemoglobin Concent 33.8, Red Cell Distribution Width 12.9, Platelet Count 139L, Mean Platelet Volume 11.8H, Neutrophils (%) (Auto) 81.4H, Lymphocytes (%) (Auto) 9.1L, Monocytes (%) (Auto) 8.9, Eosinophils (%) (Auto) 0.1, Basophils (%) (Auto) 0.4, Sodium Level 141, Potassium Level 3.4, Chloride Level 100, Carbon Dioxide Level 26, Anion Gap 15, Blood Urea Nitrogen 12, Creatinine 1.1H, Estimat Glomerular Filtration Rate , Glucose Level 146H, Calcium Level 9.2 Height (Feet): 5 Height (Inches): 6.00 Weight (Pounds): 203 General Appearance: lethargic EENT: normal ENT inspection Neck: normal alignment Cardiovascular: normal peripheral pulses, normal rate, regular rhythm Respiratory/Chest: chest wall non-tender, lungs clear, normal breath sounds Abdomen: normal bowel sounds, non tender, soft Extremities: normal inspection Edema: no edema noted Arm (L), no edema noted Arm (R), no edema noted Leg (L), no edema noted Leg (R), no edema noted Pedal (L), no edema noted Pedal (R), no edema noted Generalized Neurologic: responsive, motor weakness Skin: normal pigmentation, warm/dry Objective sl r facial swelling and warmth CALIN MICHAEL Mar 13, 2017 14:48
[2017-03-13] MEDS ORDERED: Tubing IV Secondary IV ONE (15:07)
[2017-03-13] MEDS ORDERED: NS 275ml ONE (15:07)
[2017-03-13 15:38] VITALS: BP 140/75
--- NOTE | 2017-03-13 17:35 | Infectious Diseases Prog Note ---
Assessment/Plan Problems: (1) probably right facial herpes zoster r/o secondary bacterial abscess Assessment & Plan: on acyclovir iv , continue pain management, will treat for 14 days . (2) Otitis media of right ear Assessment & Plan: on vancomycin , cefepime and flagyl empirically, will send culture from the ear drainage , recommend ENT eval (3) Facial cellulitis Assessment & Plan: suspect complication from right ear infection, continue wide spectrum antibiotics (4) Sepsis Assessment & Plan: due to phillip above, will send blood culture, and start vancomycin, cefepime and flagyl empirically (5) CARMEN (acute kidney injury) Assessment & Plan: needs hydration, with close monitor of vancomycin level, monitor RFT (6) symptomatic Right trigeminal neuralgia ,intractable pain Assessment & Plan: ON TEGRETOL Subjective Constitutional: Reports: fatigue HEENT: Reports: congestion, hearing change, other - right facial pain , and swelling Respiratory: Reports: no symptoms Breasts: Reports: no symptoms Cardiovascular: Reports: no symptoms Gastrointestinal/Abdominal: Reports: no symptoms Genitourinary: Reports: no symptoms Neurologic: Reports: headache, numbness Psychiatric: Reports: anxiety Skin: Reports: rash Endocrine: Reports: no symptoms Allergies: Coded Allergies: No Known Allergies (Unverified , 01/06/17) Subjective facial tenderness Objective Vital Signs Last 24 Hour Vital Signs Date Time Temp Pulse Resp B/P Pulse Ox O2 Delivery O2 Flow Rate FiO2 03/13/17 15:38 98.4 76 20 140/75 96 Room Air 03/13/17 11:35 99.0 70 20 150/76 93 Room Air 03/13/17 08:27 Room Air 03/13/17 08:26 94 Room Air 03/13/17 08:25 86 16 Room Air 03/13/17 08:18 97.9 74 20 151/77 96 Room Air 03/13/17 04:20 99.1 83 18 137/49 96 Room Air 03/13/17 00:07 68 20 Room Air 03/13/17 00:06 Room Air 21 03/13/17 00:06 99 Room Air 03/12/17 21:57 96.6 03/12/17 21:08 96.6 75 20 155/65 99 Room Air Height (Feet): 5 Height (Inches): 6.00 Weight (Pounds): 203 General Appearance: WD/WN, no acute distress HEENT: normocephalic, atraumatic, anicteric, mucous membranes moist, PERRL, other - right lower jaw rash , and right interior lip sore Respiratory/Chest: chest wall non-tender, lungs clear, normal breath sounds, no respiratory distress, no accessory muscle use Cardiovascular: normal peripheral pulses, normal rate, regular rhythm, no gallop/murmur, no JVD Abdomen: normal bowel sounds, soft, non tender, no organomegaly, non distended , no mass, no scars Genitourinary: normal external genitalia Extremities: no cyanosis, no clubbing Skin: rash, lesions Neurologic/Psychiatric: alert, oriented x 3 Laboratory Tests Test 03/13/17 05:30 White Blood Count 9.7 K/UL (4.8-10.8) # Red Blood Count 4.16 M/UL (4.20-5.40) L Hemoglobin 13.0 G/DL (12.0-16.0) Hematocrit 38.5 % (37.0-47.0) Mean Corpuscular Volume 93 FL (80-99) Mean Corpuscular Hemoglobin 31.3 PG (27.0-31.0) H Mean Corpuscular Hemoglobin Concent 33.8 G/DL (32.0-36.0) Red Cell Distribution Width 12.9 % (11.6-14.8) Platelet Count 139 K/UL (150-450) L Mean Platelet Volume 11.8 FL (6.5-10.1) H Neutrophils (%) (Auto) 81.4 % (45.0-75.0) H Lymphocytes (%) (Auto) 9.1 % (20.0-45.0) L Monocytes (%) (Auto) 8.9 % (1.0-10.0) Eosinophils (%) (Auto) 0.1 % (0.0-3.0) Basophils (%) (Auto) 0.4 % (0.0-2.0) Sodium Level 141 mEQ/L (135-145) Potassium Level 3.4 mEQ/L (3.4-4.9) Chloride Level 100 mEQ/L (98-107) Carbon Dioxide Level 26 mEQ/L (20-30) Anion Gap 15 (5-15) Blood Urea Nitrogen 12 mg/dL (7-23) Creatinine 1.1 mg/dL (0.5-0.9) H Estimat Glomerular Filtration Rate mL/min (>60) Glucose Level 146 mg/dL (74-106) H Calcium Level 9.2 mg/dL (8.6-10.2) Current Medications Medications (Trade) Dose Ordered Sig/Judith Route PRN Reason Start Time Stop Time Status Last Admin Dose Admin Acetaminophen (Tylenol) 650 mg Q4H PRN ORAL fever 03/11/17 15:30 04/10/17 15:29 Acetaminophen/ Hydrocodone Bitart ([place] 5/325) 1 tab Q4H PRN ORAL Moderate Pain (Pain Scale 4-6) 03/13/17 14:00 03/20/17 13:59 Acyclovir/Dextrose (Zovirax/D5W) 275 ml @ 275 mls/hr Q8HR@0000,1000,1800 IV 03/12/17 18:00 03/19/17 17:59 03/13/17 10:35 Albuterol/ Ipratropium 3 ml 3 ml Q4H PRN HHN Shortness of Breath 03/11/17 15:30 03/16/17 15:29 Carbamazepine (TEGretol XR) 200 mg EVERY 12 HOURS ORAL 03/12/17 18:00 04/11/17 17:59 03/13/17 08:33 Cefepime HCl/ Dextrose (Maxipime/D5W) 110 ml @ 220 mls/hr Q24H IV 03/11/17 20:00 03/18/17 19:59 03/12/17 20:01 Clonidine HCl (Catapres) 0.1 mg Q6H PRN ORAL sbp above 160 03/13/17 12:15 04/12/17 12:14 Dextrose (Dextrose 50%) STAT PRN IV Hypoglycemia 03/11/17 15:30 04/10/17 15:29 Heparin Sodium (Porcine) 5000 units 5,000 units EVERY 12 HOURS SUBQ 03/11/17 21:00 04/10/17 20:59 03/11/17 21:06 Metronidazole (Flagyl) 100 ml @ 100 mls/hr Q6HR IVPB 03/11/17 18:30 03/18/17 18:29 03/13/17 13:02 Morphine Sulfate 4 mg 4 mg Q4H PRN IVP SEVERE PAIN 03/12/17 15:30 03/19/17 15:29 03/12/17 21:27 Nitroglycerin (Ntg) 0.4 mg Every 5 Minutes PRN SL Prn Chest Pain 03/11/17 15:30 04/10/17 15:29 Ondansetron HCl (Zofran) 4 mg Q6H PRN IVP Nausea & Vomiting 03/11/17 15:30 04/10/17 15:29 03/13/17 03:54 Pantoprazole 40 mg 40 mg EVERY 12 HOURS ORAL 03/11/17 21:00 04/10/17 20:59 03/13/17 08:33 Polyethylene Glycol (Miralax) 17 gm DAILYPRN PRN ORAL Constipation 03/11/17 15:30 04/10/17 15:29 Temazepam (Restoril) 15 mg HSPRN PRN ORAL Insomnia 03/11/17 15:30 03/18/17 15:29 Vancomycin HCl (Vanco rx to dose) 1 ea DAILY PRN MISC PRN RX PROTOCOL 03/11/17 17:30 04/10/17 17:29 Vancomycin HCl/ Dextrose (Vancomycin 1250mg/D5W 250ml) 250 ml @ 166.667 mls/hr Q24H IVPB 03/12/17 21:00 03/17/17 20:59 03/12/17 21:25 Tyrese Muniz M.D. Mar 13, 2017 17:35
[2017-03-13 20:00] VITALS: BP 158/86
[2017-03-13] MEDS: Cefepime HCl 2 GM in D5W 110 ML IV SCH (20:00)
[2017-03-13] MEDS: Vancomycin 1250mg/D5W 250ml IVPB SCH (20:55)
[2017-03-13] MEDS: Morphine Sulfate 2mg/ml Inj IVP PRN (22:43)
[2017-03-14] VITALS (8 sets, daily range): BP systolic 134–162; BP diastolic 75–89
[2017-03-14] MEDS: Acyclovir 1,000 MG in D5W 275 ML IV SCH ×3 (00:02→18:50)
[2017-03-14] MEDS: metroNIDAZOLE 500mg 100 ML IVPB SCH ×4 (04:53→23:02)
[2017-03-14 07:56] LABS: BASOPHILS % (AUTO) 0.6 % (0.0-2.0); EOSINOPHILS % (AUTO) 0.8 % (0.0-3.0); LYMPHOCYTES % (AUTO) 18.9 % (20.0-45.0); MEAN CORPUSCULAR HGB CONC 34.4 G/DL (32.0-36.0); MEAN CORPUSCULAR VOLUME 93 FL (80-99); MEAN PLATELET VOLUME 11.5 FL (6.5-10.1); MONOCYTES % (AUTO) 9.3 % (1.0-10.0); NEUTROPHILS % (AUTO) 70.4 % (45.0-75.0); PLATELET COUNT 137 K/UL (150-450); RED BLOOD COUNT 3.94 M/UL (4.20-5.40); RED CELL DISTRIBUTION WIDTH 12.9 % (11.6-14.8)
[2017-03-14] MEDS: carBAMazepine XR 200mg tab ORAL SCH ×2 (08:04→20:37)
[2017-03-14] MEDS: Heparin 5000 units/ml inj SUBQ SCH ×2 (08:05→20:37)
[2017-03-14 08:43] LABS: ANION GAP 12 (5-15); CALCIUM 8.9 mg/dL (8.6-10.2); CARBON DIOXIDE 28 mEQ/L (20-30); CHLORIDE 103 mEQ/L (98-107); HEMOLYSIS 3; POTASSIUM 3.2 mEQ/L (3.4-4.9); SODIUM 143 mEQ/L (135-145)
--- NOTE | 2017-03-14 08:57 | General Progress Note ---
Assessment/Plan Problem List: (1) Eye pain ICD Codes: H57.10 - Ocular pain, unspecified eye SNOMED: 67246384 (2) Cellulitis ICD Codes: L03.90 - Cellulitis, unspecified SNOMED: 842824612 (3) Facial cellulitis ICD Codes: L03.211 - Cellulitis of face SNOMED: 989065349 (4) Otitis media of right ear ICD Codes: H66.91 - Otitis media, unspecified, right ear SNOMED: 26467086 (5) Sepsis ICD Codes: A41.9 - Sepsis, unspecified organism SNOMED: 51267821 Status: stable, progressing, tolerating diet Assessment/Plan abx pain control cbc bmp am dc plan w hh if clear by id, neph eval Subjective Constitutional: Reports: weakness Allergies: Coded Allergies: No Known Allergies (Unverified , 01/06/17) All Systems: reviewed and negative except above Subjective sl facial pain Objective Last 24 Hour Vital Signs Date Time Temp Pulse Resp B/P Pulse Ox O2 Delivery O2 Flow Rate FiO2 03/14/17 08:13 98.8 90 20 162/89 94 Room Air 03/14/17 04:00 98.4 81 20 159/81 100 Room Air 03/14/17 00:00 98.6 75 18 152/75 96 Room Air 03/13/17 23:17 98.2 03/13/17 20:00 98.2 91 20 158/86 93 Room Air 03/13/17 19:26 96 Room Air 03/13/17 19:26 Room Air 03/13/17 19:26 78 18 Room Air 03/13/17 18:46 98.4 03/13/17 15:38 98.4 76 20 140/75 96 Room Air 03/13/17 11:35 99.0 70 20 150/76 93 Room Air Intake and Output 03/13/17 03/14/17 19:00 07:00 Intake Total 940 ml 1035.000 ml Balance 940 ml 1035.000 ml Intake Oral 840 ml 200 ml IV Total 100 ml 835.000 ml # Voids 6 4 Laboratory Tests 03/14/17 05:00: White Blood Count 8.0, Red Blood Count 3.94L, Hemoglobin 12.6, Hematocrit 36.6L , Mean Corpuscular Volume 93, Mean Corpuscular Hemoglobin 32.0H, Mean Corpuscular Hemoglobin Concent 34.4, Red Cell Distribution Width 12.9, Platelet Count 137L, Mean Platelet Volume 11.5H, Neutrophils (%) (Auto) 70.4, Lymphocytes (%) (Auto) 18.9L, Monocytes (%) (Auto) 9.3, Eosinophils (%) (Auto) 0.8, Basophils (%) (Auto) 0.6, Sodium Level 143, Potassium Level 3.2L, Chloride Level 103, Carbon Dioxide Level 28, Anion Gap 12, Blood Urea Nitrogen 10, Creatinine 1.0H, Estimat Glomerular Filtration Rate , Glucose Level 112H, Calcium Level 8.9 Height (Feet): 5 Height (Inches): 6.00 Weight (Pounds): 203 General Appearance: lethargic EENT: normal ENT inspection Neck: normal alignment Cardiovascular: normal peripheral pulses, normal rate, regular rhythm Respiratory/Chest: chest wall non-tender, lungs clear, normal breath sounds Abdomen: normal bowel sounds, non tender, soft Extremities: normal inspection Edema: no edema noted Arm (L), no edema noted Arm (R), no edema noted Leg (L), no edema noted Leg (R), no edema noted Pedal (L), no edema noted Pedal (R), no edema noted Generalized Neurologic: responsive, motor weakness Skin: normal pigmentation, warm/dry Objective sl r facial swelling and warmth CALIN MICHAEL Mar 14, 2017 08:57
[2017-03-14] MEDS ORDERED: NS 275ml ONE (09:25)
--- NOTE | 2017-03-14 10:45 | Diagnostic Imaging Report ---
Indication: Shortness of breath Technique: XRAY CHEST 1 V Comparison: None Findings: Cardiomediastinal silhouette is within normal limits. Bandlike subsegmental atelectasis is noted in the bilateral lung bases. Atherosclerotic changes are seen. Degenerative changes of the spine are noted. Impression: Subsegmental lung base atelectasis.
--- NOTE | 2017-03-14 11:02 | Pulmonology Progress Note ---
Assessment/Plan Assessment/Plan ASSESSMENT sepsis probably R facial herpes zoster possible secondary bacterial abscess ( lienal 2 to complication of OM) facial cellulitis OM R ear symptomatic R trigeminal neuralgia HTN JOCELYN hypokalemia PLAN OF CARE MS floor ID and neuro follow IV abx and IV Acyclovir started on Tegretol as per neuro pain management check VZV titer cellulitis likely 2 to OM as per ID CT head, CT facial and MRI brain all noted and reviewed, no acute IC pathology Venous Duplex negative continue CPAP at night BP management, stable, Clonidine prn DVT GI prophylaxis bowel regimen replace K , check in am case discussed and evaluated by supervising physician Subjective Allergies: Coded Allergies: No Known Allergies (Unverified , 01/06/17) Subjective afebrile, no leukocytosis feeling better, less pain no change in vision, no change in hearing K-3.2 today Objective Last 24 Hour Vital Signs Date Time Temp Pulse Resp B/P Pulse Ox O2 Delivery O2 Flow Rate FiO2 03/14/17 10:05 76 134/77 03/14/17 08:15 94 Room Air 03/14/17 08:15 Room Air 03/14/17 08:14 88 18 Room Air 03/14/17 08:13 98.8 90 20 162/89 94 Room Air 03/14/17 04:00 98.4 81 20 159/81 100 Room Air 03/14/17 00:00 98.6 75 18 152/75 96 Room Air 03/13/17 23:17 98.2 03/13/17 20:00 98.2 91 20 158/86 93 Room Air 03/13/17 19:26 96 Room Air 03/13/17 19:26 Room Air 03/13/17 19:26 78 18 Room Air 03/13/17 18:46 98.4 03/13/17 15:38 98.4 76 20 140/75 96 Room Air 03/13/17 11:35 99.0 70 20 150/76 93 Room Air Intake and Output 03/13/17 03/14/17 19:00 07:00 Intake Total 940 ml 1035.000 ml Balance 940 ml 1035.000 ml Intake Oral 840 ml 200 ml IV Total 100 ml 835.000 ml # Voids 6 4 Objective General: NAD HEENT: NC/AT, mmm, diffuse swelling and acute tenderness on the right side of the face, right rastafarian area, right marisol-auricular region, and right lateral neck area. Skin eruption noted in the right side of the face and inner aspect of lower lip on the right. TTP /slight touch diffusely right face, right neck, and head. Neck: supple, no JVF, trachea midline Lungs: CTAB Heart: S1S2, RRR, no edema Abdomen: soft, NT/ND, normoactive BS Extremities: no edema, moves all extremities, Neuro: A/A/O x 3, no gross focal Laboratory Tests 03/14/17 05:00: White Blood Count 8.0, Red Blood Count 3.94L, Hemoglobin 12.6, Hematocrit 36.6L , Mean Corpuscular Volume 93, Mean Corpuscular Hemoglobin 32.0H, Mean Corpuscular Hemoglobin Concent 34.4, Red Cell Distribution Width 12.9, Platelet Count 137L, Mean Platelet Volume 11.5H, Neutrophils (%) (Auto) 70.4, Lymphocytes (%) (Auto) 18.9L, Monocytes (%) (Auto) 9.3, Eosinophils (%) (Auto) 0.8, Basophils (%) (Auto) 0.6, Sodium Level 143, Potassium Level 3.2L, Chloride Level 103, Carbon Dioxide Level 28, Anion Gap 12, Blood Urea Nitrogen 10, Creatinine 1.0H, Estimat Glomerular Filtration Rate , Glucose Level 112H, Calcium Level 8.9 Current Medications Medications (Trade) Dose Ordered Sig/Judith Route PRN Reason Start Time Stop Time Status Last Admin Dose Admin Acetaminophen (Tylenol) 650 mg Q4H PRN ORAL fever 03/11/17 15:30 04/10/17 15:29 Acetaminophen/ Hydrocodone Bitart ([place] 5/325) 1 tab Q4H PRN ORAL Moderate Pain (Pain Scale 4-6) 03/13/17 14:00 03/20/17 13:59 03/13/17 17:47 Acyclovir/Dextrose (Zovirax/D5W) 275 ml @ 275 mls/hr Q8HR@0000,1000,1800 IV 03/12/17 18:00 03/19/17 17:59 03/14/17 10:03 Albuterol/ Ipratropium 3 ml 3 ml Q4H PRN HHN Shortness of Breath 03/11/17 15:30 03/16/17 15:29 Carbamazepine (TEGretol XR) 200 mg EVERY 12 HOURS ORAL 03/12/17 18:00 04/11/17 17:59 03/14/17 08:04 Cefepime HCl/ Dextrose (Maxipime/D5W) 110 ml @ 220 mls/hr Q24H IV 03/11/17 20:00 03/18/17 19:59 03/13/17 20:00 Clonidine HCl (Catapres) 0.1 mg Q6H PRN ORAL sbp above 160 03/13/17 12:15 04/12/17 12:14 Dextrose (Dextrose 50%) STAT PRN IV Hypoglycemia 03/11/17 15:30 04/10/17 15:29 Heparin Sodium (Porcine) 5000 units 5,000 units EVERY 12 HOURS SUBQ 03/11/17 21:00 04/10/17 20:59 03/11/17 21:06 Metronidazole (Flagyl) 100 ml @ 100 mls/hr Q6HR IVPB 03/11/17 18:30 03/18/17 18:29 03/14/17 04:53 Morphine Sulfate 4 mg 4 mg Q4H PRN IVP SEVERE PAIN 03/12/17 15:30 03/19/17 15:29 03/13/17 22:43 Nitroglycerin (Ntg) 0.4 mg Every 5 Minutes PRN SL Prn Chest Pain 03/11/17 15:30 04/10/17 15:29 Ondansetron HCl (Zofran) 4 mg Q6H PRN IVP Nausea & Vomiting 03/11/17 15:30 04/10/17 15:29 03/13/17 20:55 Pantoprazole 40 mg 40 mg EVERY 12 HOURS ORAL 03/11/17 21:00 04/10/17 20:59 03/14/17 08:04 Polyethylene Glycol (Miralax) 17 gm DAILYPRN PRN ORAL Constipation 03/11/17 15:30 04/10/17 15:29 Temazepam (Restoril) 15 mg HSPRN PRN ORAL Insomnia 03/11/17 15:30 03/18/17 15:29 Vancomycin HCl (Vanco rx to dose) 1 ea DAILY PRN MISC PRN RX PROTOCOL 03/11/17 17:30 04/10/17 17:29 Vancomycin HCl/ Dextrose (Vancomycin 1250mg/D5W 250ml) 250 ml @ 166.667 mls/hr Q24H IVPB 03/12/17 21:00 03/17/17 20:59 03/13/17 20:55 Ibrahima (Chacha)Madonna NP Mar 14, 2017 11:02
--- NOTE | 2017-03-14 15:21 | Infectious Diseases Prog Note ---
Assessment/Plan Problems: (1) probably right facial herpes zoster r/o secondary bacterial abscess Assessment & Plan: on acyclovir iv , continue pain management, will treat for 14 days . (2) Otitis media of right ear Assessment & Plan: on vancomycin , cefepime and flagyl empirically, culture from the ear drainage grew coag negative staph most likely skin yared , recommend follow up with ENT (3) Facial cellulitis Assessment & Plan: improving, suspect complication from right facial shingles , continue wide spectrum antibiotics, MRI didn't show any abscess (4) Sepsis Assessment & Plan: due to the above, blood culture is negative , continue vancomycin, cefepime and flagyl empirically (5) CARMEN (acute kidney injury) Assessment & Plan: needs hydration, with close monitor of vancomycin level, monitor RFT (6) symptomatic Right trigeminal neuralgia ,intractable pain Assessment & Plan: ON TEGRETOL Subjective Constitutional: Reports: no symptoms HEENT: Reports: congestion, other - right facial pain, and dry rash on the right lower jaw and cheek Respiratory: Reports: no symptoms Breasts: Reports: no symptoms Cardiovascular: Reports: no symptoms Gastrointestinal/Abdominal: Reports: no symptoms Genitourinary: Reports: no symptoms Neurologic: Reports: no symptoms Psychiatric: Reports: no symptoms Skin: Reports: rash Endocrine: Reports: no symptoms Hematologic: Reports: no symptoms Musculoskeletal: Reports: no symptoms Allergies: Coded Allergies: No Known Allergies (Unverified , 01/06/17) Subjective facial tenderness Objective Vital Signs Last 24 Hour Vital Signs Date Time Temp Pulse Resp B/P Pulse Ox O2 Delivery O2 Flow Rate FiO2 03/14/17 13:44 83 141/77 03/14/17 11:29 98.8 78 20 162/83 94 Room Air 03/14/17 10:05 76 134/77 03/14/17 08:15 94 Room Air 03/14/17 08:15 Room Air 03/14/17 08:14 88 18 Room Air 03/14/17 08:13 98.8 90 20 162/89 94 Room Air 03/14/17 04:00 98.4 81 20 159/81 100 Room Air 03/14/17 00:00 98.6 75 18 152/75 96 Room Air 03/13/17 23:17 98.2 03/13/17 20:00 98.2 91 20 158/86 93 Room Air 03/13/17 19:26 96 Room Air 03/13/17 19:26 Room Air 03/13/17 19:26 78 18 Room Air 03/13/17 18:46 98.4 03/13/17 15:38 98.4 76 20 140/75 96 Room Air Height (Feet): 5 Height (Inches): 6.00 Weight (Pounds): 203 General Appearance: WD/WN, no acute distress HEENT: normocephalic, atraumatic, anicteric, mucous membranes moist, PERRL, EOMI, no JVD Respiratory/Chest: chest wall non-tender, lungs clear, normal breath sounds, no respiratory distress, no accessory muscle use Cardiovascular: normal peripheral pulses, normal rate, regular rhythm, no gallop/murmur, no JVD Abdomen: normal bowel sounds, soft, non tender, no organomegaly, non distended , no mass, no scars Extremities: no cyanosis, no clubbing Skin: rash, lesions Laboratory Tests Test 03/14/17 05:00 White Blood Count 8.0 K/UL (4.8-10.8) Red Blood Count 3.94 M/UL (4.20-5.40) L Hemoglobin 12.6 G/DL (12.0-16.0) Hematocrit 36.6 % (37.0-47.0) L Mean Corpuscular Volume 93 FL (80-99) Mean Corpuscular Hemoglobin 32.0 PG (27.0-31.0) H Mean Corpuscular Hemoglobin Concent 34.4 G/DL (32.0-36.0) Red Cell Distribution Width 12.9 % (11.6-14.8) Platelet Count 137 K/UL (150-450) L Mean Platelet Volume 11.5 FL (6.5-10.1) H Neutrophils (%) (Auto) 70.4 % (45.0-75.0) Lymphocytes (%) (Auto) 18.9 % (20.0-45.0) L Monocytes (%) (Auto) 9.3 % (1.0-10.0) Eosinophils (%) (Auto) 0.8 % (0.0-3.0) Basophils (%) (Auto) 0.6 % (0.0-2.0) Sodium Level 143 mEQ/L (135-145) Potassium Level 3.2 mEQ/L (3.4-4.9) L Chloride Level 103 mEQ/L (98-107) Carbon Dioxide Level 28 mEQ/L (20-30) Anion Gap 12 (5-15) Blood Urea Nitrogen 10 mg/dL (7-23) Creatinine 1.0 mg/dL (0.5-0.9) H Estimat Glomerular Filtration Rate mL/min (>60) Glucose Level 112 mg/dL (74-106) H Calcium Level 8.9 mg/dL (8.6-10.2) Current Medications Medications (Trade) Dose Ordered Sig/Judith Route PRN Reason Start Time Stop Time Status Last Admin Dose Admin Acetaminophen (Tylenol) 650 mg Q4H PRN ORAL fever 03/11/17 15:30 04/10/17 15:29 Acetaminophen/ Hydrocodone Bitart ([place] 5/325) 1 tab Q4H PRN ORAL Moderate Pain (Pain Scale 4-6) 03/13/17 14:00 03/20/17 13:59 03/13/17 17:47 Acyclovir/Dextrose (Zovirax/D5W) 275 ml @ 275 mls/hr Q8HR@0000,1000,1800 IV 03/12/17 18:00 03/19/17 17:59 03/14/17 10:03 Albuterol/ Ipratropium 3 ml 3 ml Q4H PRN HHN Shortness of Breath 03/11/17 15:30 03/16/17 15:29 Carbamazepine (TEGretol XR) 200 mg EVERY 12 HOURS ORAL 03/12/17 18:00 04/11/17 17:59 03/14/17 08:04 Cefepime HCl/ Dextrose (Maxipime/D5W) 110 ml @ 220 mls/hr Q24H IV 03/11/17 20:00 03/18/17 19:59 03/13/17 20:00 Clonidine HCl (Catapres) 0.1 mg Q6H PRN ORAL sbp above 160 03/13/17 12:15 04/12/17 12:14 Dextrose (Dextrose 50%) STAT PRN IV Hypoglycemia 03/11/17 15:30 04/10/17 15:29 Heparin Sodium (Porcine) 5000 units 5,000 units EVERY 12 HOURS SUBQ 03/11/17 21:00 04/10/17 20:59 03/11/17 21:06 Metronidazole (Flagyl) 100 ml @ 100 mls/hr Q6HR IVPB 03/11/17 18:30 03/18/17 18:29 03/14/17 11:31 Morphine Sulfate 4 mg 4 mg Q4H PRN IVP SEVERE PAIN 03/12/17 15:30 03/19/17 15:29 03/13/17 22:43 Nitroglycerin (Ntg) 0.4 mg Every 5 Minutes PRN SL Prn Chest Pain 03/11/17 15:30 04/10/17 15:29 Ondansetron HCl (Zofran) 4 mg Q6H PRN IVP Nausea & Vomiting 03/11/17 15:30 04/10/17 15:29 03/13/17 20:55 Pantoprazole 40 mg 40 mg EVERY 12 HOURS ORAL 03/11/17 21:00 04/10/17 20:59 03/14/17 08:04 Polyethylene Glycol (Miralax) 17 gm DAILYPRN PRN ORAL Constipation 03/11/17 15:30 04/10/17 15:29 Temazepam (Restoril) 15 mg HSPRN PRN ORAL Insomnia 03/11/17 15:30 03/18/17 15:29 Vancomycin HCl (Vanco rx to dose) 1 ea DAILY PRN MISC PRN RX PROTOCOL 03/11/17 17:30 04/10/17 17:29 Vancomycin HCl/ Dextrose (Vancomycin 1250mg/D5W 250ml) 250 ml @ 166.667 mls/hr Q24H IVPB 03/12/17 21:00 03/17/17 20:59 03/13/17 20:55 Tyrese Muniz M.D. Mar 14, 2017 15:21
[2017-03-14] MEDS: Cefepime HCl 2 GM in D5W 110 ML IV SCH (19:52)
[2017-03-14] MEDS: Vancomycin 1250mg/D5W 250ml IVPB SCH (20:37)
[2017-03-14] MEDS: Morphine Sulfate 2mg/ml Inj IVP PRN (22:10)
[2017-03-15] VITALS: BP 147/76
[2017-03-15] MEDS: Acyclovir 1,000 MG in D5W 275 ML IV SCH ×3 (00:07→19:40)
[2017-03-15 04:00] VITALS: BP 144/77
[2017-03-15] MEDS: metroNIDAZOLE 500mg 100 ML IVPB SCH ×4 (05:26→23:38)
[2017-03-15 07:53] LABS: BASOPHILS % (AUTO) 0.7 % (0.0-2.0); EOSINOPHILS % (AUTO) 1.2 % (0.0-3.0); LYMPHOCYTES % (AUTO) 24.9 % (20.0-45.0); MEAN CORPUSCULAR VOLUME 94 FL (80-99); MONOCYTES % (AUTO) 9.4 % (1.0-10.0); NEUTROPHILS % (AUTO) 63.9 % (45.0-75.0); PLATELET COUNT 134 K/UL (150-450); RED BLOOD COUNT 3.68 M/UL (4.20-5.40); RED CELL DISTRIBUTION WIDTH 13.3 % (11.6-14.8); WHITE BLOOD COUNT 7.1 K/UL (4.8-10.8)
[2017-03-15 08:11] VITALS: BP 153/77
[2017-03-15] MEDS: carBAMazepine XR 200mg tab ORAL SCH ×2 (08:16→20:46)
[2017-03-15] MEDS: Heparin 5000 units/ml inj SUBQ SCH ×2 (08:16→21:00)
[2017-03-15 08:17] LABS: ANION GAP 12 (5-15); CALCIUM 8.6 mg/dL (8.6-10.2); CARBON DIOXIDE 29 mEQ/L (20-30); CHLORIDE 104 mEQ/L (98-107); HEMOLYSIS 2; POTASSIUM 3.5 mEQ/L (3.4-4.9); SODIUM 145 mEQ/L (135-145)
--- NOTE | 2017-03-15 08:53 | General Progress Note ---
Assessment/Plan Problem List: (1) Eye pain ICD Codes: H57.10 - Ocular pain, unspecified eye SNOMED: 36642939 (2) Cellulitis ICD Codes: L03.90 - Cellulitis, unspecified SNOMED: 075665444 (3) Facial cellulitis ICD Codes: L03.211 - Cellulitis of face SNOMED: 621680932 (4) Otitis media of right ear ICD Codes: H66.91 - Otitis media, unspecified, right ear SNOMED: 50320226 (5) Sepsis ICD Codes: A41.9 - Sepsis, unspecified organism SNOMED: 80679064 Status: stable, progressing, tolerating diet Assessment/Plan abx pain control cbc bmp am dc plan w hh if clear by id, neph eval Subjective Constitutional: Reports: weakness Allergies: Coded Allergies: No Known Allergies (Unverified , 01/06/17) All Systems: reviewed and negative except above Subjective sl facial pain Objective Last 24 Hour Vital Signs Date Time Temp Pulse Resp B/P Pulse Ox O2 Delivery O2 Flow Rate FiO2 03/15/17 08:11 98.2 74 20 153/77 99 Room Air 03/15/17 04:00 98.3 80 18 144/77 97 Room Air 03/15/17 01:34 Room Air 21 03/15/17 01:34 94 Room Air 21 03/15/17 01:33 73 18 Room Air 21 03/15/17 00:00 98.6 78 20 147/76 95 Room Air 03/14/17 20:00 98.8 79 18 138/78 95 Room Air 03/14/17 16:10 98.4 80 20 155/80 96 Room Air 03/14/17 13:44 83 141/77 03/14/17 11:29 98.8 78 20 162/83 94 Room Air 03/14/17 10:05 76 134/77 Intake and Output 03/14/17 03/15/17 19:00 07:00 Intake Total 855 ml 1195.000 ml Balance 855 ml 1195.000 ml Intake Oral 480 ml 360 ml IV Total 375 ml 835.000 ml # Voids 2 3 # Bowel Movements 1 Laboratory Tests 03/15/17 05:10: White Blood Count 7.1, Red Blood Count 3.68L, Hemoglobin 11.4L, Hematocrit 34.5L , Mean Corpuscular Volume 94, Mean Corpuscular Hemoglobin 31.0, Mean Corpuscular Hemoglobin Concent 33.0, Red Cell Distribution Width 13.3, Platelet Count 134L, Mean Platelet Volume 11.0H, Neutrophils (%) (Auto) 63.9, Lymphocytes (%) (Auto) 24.9, Monocytes (%) (Auto) 9.4, Eosinophils (%) (Auto) 1.2, Basophils (%) (Auto) 0.7, Sodium Level 145, Potassium Level 3.5, Chloride Level 104, Carbon Dioxide Level 29, Anion Gap 12, Blood Urea Nitrogen 13, Creatinine 1.0H, Estimat Glomerular Filtration Rate , Glucose Level 103, Calcium Level 8.6, Magnesium Level 1.8 Height (Feet): 5 Height (Inches): 6.00 Weight (Pounds): 203 General Appearance: alert EENT: normal ENT inspection Neck: normal alignment Cardiovascular: normal peripheral pulses, normal rate, regular rhythm Respiratory/Chest: chest wall non-tender, lungs clear, normal breath sounds Abdomen: normal bowel sounds, non tender, soft Extremities: normal inspection Edema: no edema noted Arm (L), no edema noted Arm (R), no edema noted Leg (L), no edema noted Leg (R), no edema noted Pedal (L), no edema noted Pedal (R), no edema noted Generalized Neurologic: responsive, motor weakness Skin: normal pigmentation, warm/dry Objective sl r facial swelling and warmth CALIN MICHAEL Mar 15, 2017 08:53
--- NOTE | 2017-03-15 09:08 | Pulmonology Progress Note ---
Assessment/Plan Assessment/Plan ASSESSMENT sepsis probably R facial herpes zoster possible secondary bacterial abscess ( lienal 2 to complication of OM) facial cellulitis OM R ear symptomatic R trigeminal neuralgia HTN JOCELYN hypokalemia PLAN OF CARE MS floor ID and neuro follow IV abx and IV Acyclovir started on Tegretol as per neuro pain management VZV titer elevated IgG ( already expected), IgM pending ( expect elevated if flare of shingles) cellulitis likely 2 to OM as per ID CT head, CT facial and MRI brain all noted and reviewed, no acute IC pathology Venous Duplex negative continue CPAP at night BP management, stable, Clonidine prn DVT GI prophylaxis bowel regimen K stable after replacement case discussed and evaluated by supervising physician Subjective Allergies: Coded Allergies: No Known Allergies (Unverified , 01/06/17) Subjective afebrile, no leukocytosis feeling better, less pain and discomfort no change in vision, no change in hearing Objective Last 24 Hour Vital Signs Date Time Temp Pulse Resp B/P Pulse Ox O2 Delivery O2 Flow Rate FiO2 03/15/17 08:11 98.2 74 20 153/77 99 Room Air 03/15/17 04:00 98.3 80 18 144/77 97 Room Air 03/15/17 01:34 Room Air 21 03/15/17 01:34 94 Room Air 21 03/15/17 01:33 73 18 Room Air 21 03/15/17 00:00 98.6 78 20 147/76 95 Room Air 03/14/17 20:00 98.8 79 18 138/78 95 Room Air 03/14/17 16:10 98.4 80 20 155/80 96 Room Air 03/14/17 13:44 83 141/77 03/14/17 11:29 98.8 78 20 162/83 94 Room Air 03/14/17 10:05 76 134/77 Intake and Output 03/14/17 03/15/17 19:00 07:00 Intake Total 855 ml 1195.000 ml Balance 855 ml 1195.000 ml Intake Oral 480 ml 360 ml IV Total 375 ml 835.000 ml # Voids 2 3 # Bowel Movements 1 Objective General: NAD HEENT: NC/AT, mmm, diffuse swelling and acute tenderness on the right side of the face, right bahai area, right marisol-auricular region, and right lateral neck area. Skin eruption right side of the face and inner aspect of lower lip on the right. TTP to touch diffusely : right face, right neck, and head. Neck: supple, no JVF, trachea midline Lungs: CTAB Heart: S1S2, RRR, no edema Abdomen: soft, NT/ND, normoactive BS Extremities: no edema, moves all extremities, Neuro: A/A/O x 3, no gross focal Laboratory Tests 03/15/17 05:10: White Blood Count 7.1, Red Blood Count 3.68L, Hemoglobin 11.4L, Hematocrit 34.5L , Mean Corpuscular Volume 94, Mean Corpuscular Hemoglobin 31.0, Mean Corpuscular Hemoglobin Concent 33.0, Red Cell Distribution Width 13.3, Platelet Count 134L, Mean Platelet Volume 11.0H, Neutrophils (%) (Auto) 63.9, Lymphocytes (%) (Auto) 24.9, Monocytes (%) (Auto) 9.4, Eosinophils (%) (Auto) 1.2, Basophils (%) (Auto) 0.7, Sodium Level 145, Potassium Level 3.5, Chloride Level 104, Carbon Dioxide Level 29, Anion Gap 12, Blood Urea Nitrogen 13, Creatinine 1.0H, Estimat Glomerular Filtration Rate , Glucose Level 103, Calcium Level 8.6, Magnesium Level 1.8 Current Medications Medications (Trade) Dose Ordered Sig/Judith Route PRN Reason Start Time Stop Time Status Last Admin Dose Admin Acetaminophen (Tylenol) 650 mg Q4H PRN ORAL fever 03/11/17 15:30 04/10/17 15:29 Acetaminophen/ Hydrocodone Bitart ([place] 5/325) 1 tab Q4H PRN ORAL Moderate Pain (Pain Scale 4-6) 03/13/17 14:00 03/20/17 13:59 03/13/17 17:47 Acyclovir/Dextrose (Zovirax/D5W) 275 ml @ 275 mls/hr Q8HR@0000,1000,1800 IV 03/12/17 18:00 03/19/17 17:59 03/15/17 09:01 Albuterol/ Ipratropium 3 ml 3 ml Q4H PRN HHN Shortness of Breath 03/11/17 15:30 03/16/17 15:29 Carbamazepine (TEGretol XR) 200 mg EVERY 12 HOURS ORAL 03/12/17 18:00 04/11/17 17:59 03/15/17 08:16 Cefepime HCl/ Dextrose (Maxipime/D5W) 110 ml @ 220 mls/hr Q24H IV 03/11/17 20:00 03/18/17 19:59 03/14/17 19:52 Clonidine HCl (Catapres) 0.1 mg Q6H PRN ORAL sbp above 160 03/13/17 12:15 04/12/17 12:14 Dextrose (Dextrose 50%) STAT PRN IV Hypoglycemia 03/11/17 15:30 04/10/17 15:29 Heparin Sodium (Porcine) 5000 units 5,000 units EVERY 12 HOURS SUBQ 03/11/17 21:00 04/10/17 20:59 03/11/17 21:06 Metronidazole (Flagyl) 100 ml @ 100 mls/hr Q6HR IVPB 03/11/17 18:30 03/18/17 18:29 03/15/17 05:26 Morphine Sulfate 4 mg 4 mg Q4H PRN IVP SEVERE PAIN 03/12/17 15:30 03/19/17 15:29 03/14/17 22:10 Nitroglycerin (Ntg) 0.4 mg Every 5 Minutes PRN SL Prn Chest Pain 03/11/17 15:30 04/10/17 15:29 Ondansetron HCl (Zofran) 4 mg Q6H PRN IVP Nausea & Vomiting 03/11/17 15:30 04/10/17 15:29 03/14/17 18:52 Pantoprazole 40 mg 40 mg EVERY 12 HOURS ORAL 03/11/17 21:00 04/10/17 20:59 03/15/17 08:16 Polyethylene Glycol (Miralax) 17 gm DAILYPRN PRN ORAL Constipation 03/11/17 15:30 04/10/17 15:29 Temazepam (Restoril) 15 mg HSPRN PRN ORAL Insomnia 03/11/17 15:30 03/18/17 15:29 Vancomycin HCl (Vanco rx to dose) 1 ea DAILY PRN MISC PRN RX PROTOCOL 03/11/17 17:30 04/10/17 17:29 Vancomycin HCl/ Dextrose (Vancomycin 1250mg/D5W 250ml) 250 ml @ 166.667 mls/hr Q24H IVPB 03/12/17 21:00 03/17/17 20:59 03/14/17 20:37 Ibrahima ([facility])Madonna NP Mar 15, 2017 09:08
[2017-03-15] MEDS ORDERED: DuoNeb 0.5-3(2.5)mg/3ml neb HHN PRN (10:00)
[2017-03-15 11:58] VITALS: BP 151/81
[2017-03-15] MEDS ORDERED: NS 275ml ONE (15:02)
[2017-03-15] MEDS ORDERED: Tubing IV Secondary IV ONE (15:02)
[2017-03-15 16:00] VITALS: BP 155/84
--- NOTE | 2017-03-15 16:16 | Infectious Diseases Prog Note ---
Assessment/Plan Problems: (1) probably right facial herpes zoster r/o secondary bacterial abscess Assessment & Plan: on acyclovir iv , continue pain management, will treat for 14 days . (2) Otitis media of right ear Assessment & Plan: on vancomycin , cefepime and flagyl empirically, culture from the ear drainage grew coag negative staph most likely skin yared , recommend follow up with ENT (3) Facial cellulitis Assessment & Plan: improving, suspect complication from right facial shingles , continue wide spectrum antibiotics, MRI didn't show any abscess (4) Sepsis Assessment & Plan: due to the above, blood culture is negative , continue vancomycin, cefepime and flagyl empirically (5) CARMEN (acute kidney injury) Assessment & Plan: needs hydration, with close monitor of vancomycin level, monitor RFT (6) symptomatic Right trigeminal neuralgia ,intractable pain Assessment & Plan: ON TEGRETOL Subjective HEENT: Reports: congestion, other - facial pain and swelling Respiratory: Reports: no symptoms Breasts: Reports: no symptoms Cardiovascular: Reports: no symptoms Gastrointestinal/Abdominal: Reports: no symptoms Neurologic: Reports: headache, numbness, weakness Psychiatric: Reports: no symptoms Skin: Reports: rash Allergies: Coded Allergies: No Known Allergies (Unverified , 01/06/17) Subjective facial tenderness Objective Vital Signs Last 24 Hour Vital Signs Date Time Temp Pulse Resp B/P Pulse Ox O2 Delivery O2 Flow Rate FiO2 03/15/17 11:58 97.9 79 20 151/81 95 Room Air 03/15/17 10:03 Room Air 03/15/17 10:02 97 Room Air 03/15/17 10:01 71 18 Room Air 03/15/17 08:11 98.2 74 20 153/77 99 Room Air 03/15/17 04:00 98.3 80 18 144/77 97 Room Air 03/15/17 01:34 Room Air 21 03/15/17 01:34 94 Room Air 21 03/15/17 01:33 73 18 Room Air 03/15/17 00:00 98.6 78 20 147/76 95 Room Air 03/14/17 20:00 98.8 79 18 138/78 95 Room Air Height (Feet): 5 Height (Inches): 6.00 Weight (Pounds): 203 General Appearance: WD/WN, no acute distress HEENT: normocephalic, atraumatic, anicteric, mucous membranes moist, PERRL Respiratory/Chest: chest wall non-tender, normal breath sounds, no respiratory distress, no accessory muscle use Cardiovascular: normal peripheral pulses, normal rate, regular rhythm, no gallop/murmur Abdomen: normal bowel sounds, soft, non tender, no organomegaly, non distended , no mass, no scars Extremities: no cyanosis, no clubbing Skin: rash Laboratory Tests Test 03/15/17 05:10 White Blood Count 7.1 K/UL (4.8-10.8) Red Blood Count 3.68 M/UL (4.20-5.40) L Hemoglobin 11.4 G/DL (12.0-16.0) L Hematocrit 34.5 % (37.0-47.0) L Mean Corpuscular Volume 94 FL (80-99) Mean Corpuscular Hemoglobin 31.0 PG (27.0-31.0) Mean Corpuscular Hemoglobin Concent 33.0 G/DL (32.0-36.0) Red Cell Distribution Width 13.3 % (11.6-14.8) Platelet Count 134 K/UL (150-450) L Mean Platelet Volume 11.0 FL (6.5-10.1) H Neutrophils (%) (Auto) 63.9 % (45.0-75.0) Lymphocytes (%) (Auto) 24.9 % (20.0-45.0) Monocytes (%) (Auto) 9.4 % (1.0-10.0) Eosinophils (%) (Auto) 1.2 % (0.0-3.0) Basophils (%) (Auto) 0.7 % (0.0-2.0) Sodium Level 145 mEQ/L (135-145) Potassium Level 3.5 mEQ/L (3.4-4.9) Chloride Level 104 mEQ/L (98-107) Carbon Dioxide Level 29 mEQ/L (20-30) Anion Gap 12 (5-15) Blood Urea Nitrogen 13 mg/dL (7-23) Creatinine 1.0 mg/dL (0.5-0.9) H Estimat Glomerular Filtration Rate mL/min (>60) Glucose Level 103 mg/dL (74-106) Calcium Level 8.6 mg/dL (8.6-10.2) Magnesium Level 1.8 mg/dL (1.7-2.5) Current Medications Medications (Trade) Dose Ordered Sig/Judith Route PRN Reason Start Time Stop Time Status Last Admin Dose Admin Acetaminophen (Tylenol) 650 mg Q4H PRN ORAL fever 03/11/17 15:30 04/10/17 15:29 Acetaminophen/ Hydrocodone Bitart ([place] 5/325) 1 tab Q4H PRN ORAL Moderate Pain (Pain Scale 4-6) 03/13/17 14:00 03/20/17 13:59 03/13/17 17:47 Acyclovir/Dextrose (Zovirax/D5W) 275 ml @ 275 mls/hr Q8HR@0000,1000,1800 IV 03/12/17 18:00 03/19/17 17:59 03/15/17 09:01 Albuterol/ Ipratropium (DuoNeb 0.5-3(2.5)mg/3ml) 3 ml Q4H PRN HHN Shortness of Breath 03/15/17 10:00 03/20/17 09:59 Carbamazepine (TEGretol XR) 200 mg EVERY 12 HOURS ORAL 03/12/17 18:00 04/11/17 17:59 03/15/17 08:16 Cefepime HCl 2 gm/ Dextrose 110 ml @ 220 mls/hr Q24H IV 03/11/17 20:00 03/18/17 19:59 03/14/17 19:52 Clonidine HCl (Catapres) 0.1 mg Q6H PRN ORAL sbp above 160 03/13/17 12:15 04/12/17 12:14 Dextrose (Dextrose 50%) STAT PRN IV Hypoglycemia 03/11/17 15:30 04/10/17 15:29 Heparin Sodium (Porcine) 5000 units 5,000 units EVERY 12 HOURS SUBQ 03/11/17 21:00 04/10/17 20:59 03/11/17 21:06 Hydrocortisone (Anusol HC) 1 applic TWICE A DAY RECTAL 03/15/17 12:00 03/22/17 11:59 03/15/17 13:26 Metronidazole (Flagyl) 100 ml @ 100 mls/hr Q6HR IVPB 03/11/17 18:30 03/18/17 18:29 03/15/17 12:00 Morphine Sulfate 4 mg 4 mg Q4H PRN IVP SEVERE PAIN 03/12/17 15:30 03/19/17 15:29 03/14/17 22:10 Nitroglycerin (Ntg) 0.4 mg Every 5 Minutes PRN SL Prn Chest Pain 03/11/17 15:30 04/10/17 15:29 Ondansetron HCl (Zofran) 4 mg Q6H PRN IVP Nausea & Vomiting 03/11/17 15:30 04/10/17 15:29 03/14/17 18:52 Pantoprazole 40 mg 40 mg EVERY 12 HOURS ORAL 03/11/17 21:00 04/10/17 20:59 03/15/17 08:16 Polyethylene Glycol (Miralax) 17 gm DAILYPRN PRN ORAL Constipation 03/11/17 15:30 04/10/17 15:29 Temazepam (Restoril) 15 mg HSPRN PRN ORAL Insomnia 03/11/17 15:30 03/18/17 15:29 Vancomycin HCl (Vanco rx to dose) 1 ea DAILY PRN MISC PRN RX PROTOCOL 03/11/17 17:30 04/10/17 17:29 Vancomycin HCl/ Dextrose (Vancomycin 1250mg/D5W 250ml) 250 ml @ 166.667 mls/hr Q24H IVPB 03/12/17 21:00 03/17/17 20:59 03/14/17 20:37 Tyrese Muniz M.D. Mar 15, 2017 16:15
--- NOTE | 2017-03-15 17:52 | Diagnostic Imaging Report ---
APPROVED REPORT CPT Code: 30256 Present Symptoms Shortness of breath BILATERAL: Imaging reveals a patent deep venous system bilaterally. There is no evidence of thrombus within the femoral, popliteal or tibial segments. The greater saphenous veins are also within normal limits. Doppler indicates normal spontaneous flow within these segments.
[2017-03-15 20:00] VITALS: BP 143/76
[2017-03-15] MEDS: Cefepime HCl 2 GM in D5W 110 ML IV SCH (20:17)
[2017-03-15] MEDS: Vancomycin 750mg/D5W 275ml IVPB SCH ×2 (22:56)
[2017-03-15] MEDS: Norco 5mg/325mg tab ORAL PRN (22:56)
--- NOTE | 2017-03-15 23:18 | Nephrology Progress Note ---
Objective Objective Last 24 Hour Vital Signs Date Time Temp Pulse Resp B/P Pulse Ox O2 Delivery O2 Flow Rate FiO2 03/15/17 20:00 98.9 77 20 143/76 98 Room Air 03/15/17 19:05 97 Room Air 03/15/17 19:05 75 18 Room Air 03/15/17 19:05 Room Air 03/15/17 16:00 98.2 77 20 155/84 97 Room Air 03/15/17 11:58 97.9 79 20 151/81 95 Room Air 03/15/17 10:03 Room Air 03/15/17 10:02 97 Room Air 03/15/17 10:01 71 18 Room Air 03/15/17 08:11 98.2 74 20 153/77 99 Room Air 03/15/17 04:00 98.3 80 18 144/77 97 Room Air 03/15/17 01:34 Room Air 21 03/15/17 01:34 94 Room Air 21 03/15/17 01:33 73 18 Room Air 21 03/15/17 00:00 98.6 78 20 147/76 95 Room Air Intake and Output 03/14/17 03/15/17 19:00 07:00 Intake Total 855 ml 1195.000 ml Balance 855 ml 1195.000 ml Intake Oral 480 ml 360 ml IV Total 375 ml 835.000 ml # Voids 2 3 # Bowel Movements 1 Laboratory Tests 03/15/17 05:10: White Blood Count 7.1, Red Blood Count 3.68L, Hemoglobin 11.4L, Hematocrit 34.5L , Mean Corpuscular Volume 94, Mean Corpuscular Hemoglobin 31.0, Mean Corpuscular Hemoglobin Concent 33.0, Red Cell Distribution Width 13.3, Platelet Count 134L, Mean Platelet Volume 11.0H, Neutrophils (%) (Auto) 63.9, Lymphocytes (%) (Auto) 24.9, Monocytes (%) (Auto) 9.4, Eosinophils (%) (Auto) 1.2, Basophils (%) (Auto) 0.7, Sodium Level 145, Potassium Level 3.5, Chloride Level 104, Carbon Dioxide Level 29, Anion Gap 12, Blood Urea Nitrogen 13, Creatinine 1.0H, Estimat Glomerular Filtration Rate , Glucose Level 103, Calcium Level 8.6, Magnesium Level 1.8 03/15/17 06:30: D-Dimer 786H, Iron Level 50, Total Iron Binding Capacity 307, Percent Iron Saturation 16, Unsaturated Iron Binding 257, Ferritin 37, Carcinoembryonic Antigen 2.6, CA 125 Antigen [Pending] 03/15/17 20:40: Vancomycin Level Trough 13.8H Height (Feet): 5 Height (Inches): 6.00 Weight (Pounds): 203 BISHOP GREGORY Mar 15, 2017 23:18
[2017-03-16] VITALS: BP 149/86
[2017-03-16] MEDS: Acyclovir 1,000 MG in D5W 275 ML IV SCH ×2 (00:31→09:31)
[2017-03-16 04:00] VITALS: BP 144/82
[2017-03-16] MEDS: metroNIDAZOLE 500mg 100 ML IVPB SCH ×2 (05:21→12:00)
--- NOTE | 2017-03-16 05:45 | Consultation ---
DATE OF CONSULTATION: 03/12/2017 HEMATOLOGY/ONCOLOGY CONSULT CONSULTING PHYSICIAN: Enrique Rivera M.D. ADMITTING PHYSICIAN: Adrian Mac D.O. REQUESTING PHYSICIAN: Adrian Mac D.O. REASON FOR CONSULTATION: Severe anemia. CURRENT COMPLAINT AND HISTORY OF PRESENT ILLNESS: Dear Dr. Adrian Mac, Today, I had an opportunity to see one of your patients, who as you are well aware is a 71-year-old delightful female with a history of right facial pain and right facial cellulitis. The patient was not sure if she got the bug bite before she developed the symptoms. The patient ended up in the [facility]. The patient has a history of hypertension and CVA as well as a back surgery and . During evaluation at [facility], it was found the patient developed significant anemia. My service was called to handle the issue of significant anemia. PAST MEDICAL HISTORY: Hypertension. CVA. History of smoking. Status post . Back surgery. MEDICATIONS: 1. Heparin. 2. Cefepime. 3. Kelliher. 4. Dextrose. 5. Nitroglycerin. 6. Restoril. 7. Zofran. 8. MiraLax. 9. Morphine. 10. Tylenol. 11. DuoNeb. ALLERGIES: NKDA. FAMILY HISTORY: Noncontributory. SOCIAL HISTORY: 1. Positive history of smoking. 2. Occasional alcohol use. 3. No history of intravenous drug use. REVIEW OF SYSTEMS: General: The patient is not in any significant distress, but is currently ill. Respiratory: Mild shortness of breath on exertion. Gastrointestinal: The patient claimed constipation. Neuromuscular: The patient claimed muscle aches. PHYSICAL EXAMINATION: VITAL SIGNS: T-max 97 degrees, respiratory rate 20, heart rate 80, and blood pressure 130/80. HEENT: Head, normocephalic and atraumatic. NECK: Supple. No thyroid enlargement. No lymphadenopathy. LUNGS: Decreased breath sounds bilaterally with a few rhonchi in the base. HEART: S1 and S2 regular. ABDOMEN: Soft and benign. No organomegaly present. Bowel sounds present. EXTREMITIES: No cyanosis, clubbing, or edema. LABORATORY DATA: Shows WBC 7.1, hemoglobin 11.4, hematocrit 34.5, and platelets 134,000. IMPRESSION: 1. Anemia of chronic disease. 2. Anemia of iron deficiency. 3. Decreased hemoglobin and hematocrit, rule out gastrointestinal bleed. 4. Thrombocytopenia, multifactorial. 5. Coronary artery disease. 6. Hypertension. 7. History of cerebrovascular accident. 8. Status post section. 9. Status post back surgery. 10. History of smoking. 11. Chronic obstructive pulmonary disease. 12. Gastroesophageal reflux disease. 13. Obesity. 14. Sleep apnea. On ongoing treatment with continuous positive airway pressure. 15. Dyslipidemia. 16. History of acute myocardial infarction x2 in the past. 17. Failure to thrive. 18. Cellulitis, right face and neck area. 19. Symptomatic right trigeminal neuralgia. 20. Secondary bacterial abscess in the right face and the neck area. RECOMMENDATIONS: 1. Watch count. 2. Watch coagulopathy. 3. PRBC transfusion on p.r.n. basis. 4. Platelet transfusion on p.r.n. basis. 5. ID followup. 6. Neurology followup. 7. Pulmonary followup. 8. Antibiotic IV. 9. Continue current treatment and skin care. 10. Nutrition. 11. Close followup. Dear Dr. Adrian Mac, I greatly appreciate the opportunity of participating in the care of one of your patients. It is a privilege to interesting and challenging case. Enrique Rivera MD DR: ANN JOB#: [id number] CC:
[2017-03-16 06:28] LABS: BASOPHILS % (AUTO) 0.8 % (0.0-2.0); EOSINOPHILS % (AUTO) 2.9 % (0.0-3.0); LYMPHOCYTES % (AUTO) 20.8 % (20.0-45.0); MEAN CORPUSCULAR HEMOGLOBIN 31.2 PG (27.0-31.0); MEAN CORPUSCULAR HGB CONC 33.6 G/DL (32.0-36.0); MEAN CORPUSCULAR VOLUME 93 FL (80-99); MEAN PLATELET VOLUME 10.6 FL (6.5-10.1); MONOCYTES % (AUTO) 9.5 % (1.0-10.0); NEUTROPHILS % (AUTO) 65.9 % (45.0-75.0); PLATELET COUNT 127 K/UL (150-450); RED BLOOD COUNT 3.48 M/UL (4.20-5.40); RED CELL DISTRIBUTION WIDTH 13.1 % (11.6-14.8); WHITE BLOOD COUNT 6.3 K/UL (4.8-10.8)
[2017-03-16 06:31] LABS: ANION GAP 12 (5-15); CALCIUM 8.8 mg/dL (8.6-10.2); CARBON DIOXIDE 28 mEQ/L (20-30); CHLORIDE 105 mEQ/L (98-107); CREATININE 0.8 mg/dL (0.5-0.9); HEMOLYSIS 2; POTASSIUM 3.6 mEQ/L (3.4-4.9); SODIUM 145 mEQ/L (135-145)
[2017-03-16 08:00] VITALS: BP 152/72
[2017-03-16] MEDS: carBAMazepine XR 200mg tab ORAL SCH (08:42)
[2017-03-16] MEDS: Heparin 5000 units/ml inj SUBQ SCH (08:43)
[2017-03-16] MEDS: Vancomycin 750mg/D5W 275ml IVPB SCH ×2 (10:38)
[2017-03-16 12:00] VITALS: BP 151/61
[2017-03-16] MEDS ORDERED: Fluconazole 100mg tab ORAL ONE (12:00)
--- NOTE | 2017-03-16 14:14 | General Progress Note ---
Assessment/Plan Problem List: (1) Eye pain ICD Codes: H57.10 - Ocular pain, unspecified eye SNOMED: 87001900 (2) Cellulitis ICD Codes: L03.90 - Cellulitis, unspecified SNOMED: 094829160 (3) Facial cellulitis ICD Codes: L03.211 - Cellulitis of face SNOMED: 708501847 (4) Otitis media of right ear ICD Codes: H66.91 - Otitis media, unspecified, right ear SNOMED: 62035262 (5) Sepsis ICD Codes: A41.9 - Sepsis, unspecified organism SNOMED: 32007670 Status: stable, progressing, tolerating diet Assessment/Plan abx pain control dc w hh if clear by id, neph eval Subjective Constitutional: Reports: weakness Allergies: Coded Allergies: No Known Allergies (Unverified , 01/06/17) All Systems: reviewed and negative except above Subjective sl facial pain Objective Last 24 Hour Vital Signs Date Time Temp Pulse Resp B/P Pulse Ox O2 Delivery O2 Flow Rate FiO2 03/16/17 12:00 97.7 70 20 151/61 95 Room Air 03/16/17 10:18 Room Air 03/16/17 10:18 99 Room Air 03/16/17 10:16 72 18 Room Air 03/16/17 08:00 97.2 78 20 152/72 97 Room Air 03/16/17 04:00 98.3 70 18 144/82 99 Room Air 03/16/17 00:00 97.9 70 20 149/86 97 Room Air 03/15/17 20:00 98.9 77 20 143/76 98 Room Air 03/15/17 19:05 97 Room Air 03/15/17 19:05 75 18 Room Air 03/15/17 19:05 Room Air 03/15/17 16:00 98.2 77 20 155/84 97 Room Air Intake and Output 03/15/17 03/16/17 19:00 07:00 Intake Total 855 ml 1160.000 ml Balance 855 ml 1160.000 ml Intake Oral 480 ml 300 ml IV Total 375 ml 860.000 ml # Voids 2 4 # Bowel Movements 2 2 Laboratory Tests 03/15/17 20:40: Vancomycin Level Trough 13.8H 03/16/17 05:30: White Blood Count 6.3, Red Blood Count 3.48L, Hemoglobin 10.9L, Hematocrit 32.3L , Mean Corpuscular Volume 93, Mean Corpuscular Hemoglobin 31.2H, Mean Corpuscular Hemoglobin Concent 33.6, Red Cell Distribution Width 13.1, Platelet Count 127L, Mean Platelet Volume 10.6H, Neutrophils (%) (Auto) 65.9, Lymphocytes (%) (Auto) 20.8, Monocytes (%) (Auto) 9.5, Eosinophils (%) (Auto) 2.9, Basophils (%) (Auto) 0.8, Sodium Level 145, Potassium Level 3.6, Chloride Level 105, Carbon Dioxide Level 28, Anion Gap 12, Blood Urea Nitrogen 11, Creatinine 0.8, Estimat Glomerular Filtration Rate , Glucose Level 104, Calcium Level 8.8 Height (Feet): 5 Height (Inches): 6.00 Weight (Pounds): 203 General Appearance: alert EENT: normal ENT inspection Neck: normal alignment Cardiovascular: normal peripheral pulses, normal rate, regular rhythm Respiratory/Chest: chest wall non-tender, lungs clear, normal breath sounds Abdomen: normal bowel sounds, non tender, soft Extremities: normal inspection Edema: no edema noted Arm (L), no edema noted Arm (R), no edema noted Leg (L), no edema noted Leg (R), no edema noted Pedal (L), no edema noted Pedal (R), no edema noted Generalized Neurologic: responsive, motor weakness Skin: normal pigmentation, warm/dry Objective sl r facial swelling and warmth CALIN MICHAEL Mar 16, 2017 14:13
[2017-03-16 14:29] LABS: VARICELLA ZOSTER IGM ANTIBODY <0.91 index (0.00-0.90)
[2017-03-16 16:11] VITALS: BP 154/76
[2017-03-16] MEDS ORDERED: Tubing IV Secondary IV ONE (17:19)
[2017-03-16] MEDS ORDERED: NS 275ml ONE (17:19)
--- NOTE | 2017-03-16 18:36 | Infectious Diseases Prog Note ---
Assessment/Plan Problems: (1) probably right facial herpes zoster r/o secondary bacterial abscess Assessment & Plan: on acyclovir iv , will switch to oral valcyclovir to finish her course of therapy for two weeks . continue pain management. follow up with neurology (2) Otitis media of right ear Assessment & Plan: on vancomycin , cefepime and flagyl empirically, culture from the ear drainage grew coag negative staph most likely skin yared , will switch to Augmentin for 5 days , recommend follow up with ENT (3) Facial cellulitis Assessment & Plan: improving, suspect complication from right facial shingles , continue wide spectrum antibiotics, MRI didn't show any abscess (4) Sepsis Assessment & Plan: due to the above, blood culture is negative , continue vancomycin, cefepime and flagyl empirically (5) CARMEN (acute kidney injury) Assessment & Plan: needs hydration, with close monitor of vancomycin level, monitor RFT (6) symptomatic Right trigeminal neuralgia ,intractable pain Assessment & Plan: ON TEGRETOL Subjective Constitutional: Reports: no symptoms HEENT: Reports: no symptoms Respiratory: Reports: no symptoms Breasts: Reports: no symptoms Cardiovascular: Reports: no symptoms Gastrointestinal/Abdominal: Reports: no symptoms Genitourinary: Reports: no symptoms Neurologic: Reports: no symptoms Psychiatric: Reports: no symptoms Skin: Reports: rash Endocrine: Reports: no symptoms Hematologic: Reports: no symptoms Musculoskeletal: Reports: no symptoms Allergies: Coded Allergies: No Known Allergies (Unverified , 01/06/17) Subjective facial tenderness Objective Vital Signs Last 24 Hour Vital Signs Date Time Temp Pulse Resp B/P Pulse Ox O2 Delivery O2 Flow Rate FiO2 03/16/17 16:11 98.4 71 18 154/76 98 Room Air 03/16/17 12:00 97.7 70 20 151/61 95 Room Air 03/16/17 10:18 Room Air 03/16/17 10:18 99 Room Air 03/16/17 10:16 72 18 Room Air 03/16/17 08:00 97.2 78 20 152/72 97 Room Air 03/16/17 04:00 98.3 70 18 144/82 99 Room Air 03/16/17 00:00 97.9 70 20 149/86 97 Room Air 03/15/17 20:00 98.9 77 20 143/76 98 Room Air 03/15/17 19:05 97 Room Air 03/15/17 19:05 75 18 Room Air 03/15/17 19:05 Room Air Height (Feet): 5 Height (Inches): 6.00 Weight (Pounds): 203 General Appearance: WD/WN, no acute distress HEENT: normocephalic, atraumatic, anicteric, mucous membranes moist, PERRL Respiratory/Chest: chest wall non-tender, lungs clear, normal breath sounds, no respiratory distress, no accessory muscle use Cardiovascular: normal peripheral pulses, normal rate, regular rhythm, no gallop/murmur, no JVD Abdomen: normal bowel sounds, soft, non tender, no organomegaly, non distended , no mass, no scars Extremities: no cyanosis, no clubbing Skin: no rash, no lesions, no ulcers Neurologic/Psychiatric: alert, oriented x 3 Microbiology Date/Time Source Procedure Growth Status 03/15/17 18:20 Stool Clostridium difficile Toxin Assay - Final Complete Laboratory Tests Test 03/15/17 20:40 03/16/17 05:30 Vancomycin Level Trough 13.8 ug/mL (5.0-12.0) H White Blood Count 6.3 K/UL (4.8-10.8) Red Blood Count 3.48 M/UL (4.20-5.40) L Hemoglobin 10.9 G/DL (12.0-16.0) L Hematocrit 32.3 % (37.0-47.0) L Mean Corpuscular Volume 93 FL (80-99) Mean Corpuscular Hemoglobin 31.2 PG (27.0-31.0) H Mean Corpuscular Hemoglobin Concent 33.6 G/DL (32.0-36.0) Red Cell Distribution Width 13.1 % (11.6-14.8) Platelet Count 127 K/UL (150-450) L Mean Platelet Volume 10.6 FL (6.5-10.1) H Neutrophils (%) (Auto) 65.9 % (45.0-75.0) Lymphocytes (%) (Auto) 20.8 % (20.0-45.0) Monocytes (%) (Auto) 9.5 % (1.0-10.0) Eosinophils (%) (Auto) 2.9 % (0.0-3.0) Basophils (%) (Auto) 0.8 % (0.0-2.0) Sodium Level 145 mEQ/L (135-145) Potassium Level 3.6 mEQ/L (3.4-4.9) Chloride Level 105 mEQ/L (98-107) Carbon Dioxide Level 28 mEQ/L (20-30) Anion Gap 12 (5-15) Blood Urea Nitrogen 11 mg/dL (7-23) Creatinine 0.8 mg/dL (0.5-0.9) Estimat Glomerular Filtration Rate mL/min (>60) Glucose Level 104 mg/dL (74-106) Calcium Level 8.8 mg/dL (8.6-10.2) Tyrese Muniz M.D. Mar 16, 2017 18:36
--- NOTE | 2017-03-16 21:51 | Pulmonology Progress Note ---
Assessment/Plan Problems: (1) Sepsis (2) Facial cellulitis (3) Otitis media of right ear (4) symptomatic Right trigeminal neuralgia ,intractable pain (5) S/P cataract surgery Assessment/Plan improving continue abx, check cultures symptomatic treatment pain management dc planning Subjective ROS Limited/Unobtainable: No Allergies: Coded Allergies: No Known Allergies (Unverified , 01/06/17) Objective Last 24 Hour Vital Signs Date Time Temp Pulse Resp B/P Pulse Ox O2 Delivery O2 Flow Rate FiO2 03/16/17 16:11 98.4 71 18 154/76 98 Room Air 03/16/17 12:00 97.7 70 20 151/61 95 Room Air 03/16/17 10:18 Room Air 03/16/17 10:18 99 Room Air 03/16/17 10:16 72 18 Room Air 03/16/17 08:00 97.2 78 20 152/72 97 Room Air 03/16/17 04:00 98.3 70 18 144/82 99 Room Air 03/16/17 00:00 97.9 70 20 149/86 97 Room Air Intake and Output 03/15/17 03/16/17 19:00 07:00 Intake Total 855 ml 1160.000 ml Balance 855 ml 1160.000 ml Intake Oral 480 ml 300 ml IV Total 375 ml 860.000 ml # Voids 2 4 # Bowel Movements 2 2 General Appearance: WD/WN HEENT: normocephalic, atraumatic Respiratory/Chest: chest wall non-tender, normal breath sounds Breasts: no masses Cardiovascular: normal peripheral pulses Abdomen: normal bowel sounds, soft, non tender Microbiology Date/Time Source Procedure Growth Status 03/15/17 18:20 Stool Clostridium difficile Toxin Assay - Final Complete Laboratory Tests 03/16/17 05:30: White Blood Count 6.3, Red Blood Count 3.48L, Hemoglobin 10.9L, Hematocrit 32.3L , Mean Corpuscular Volume 93, Mean Corpuscular Hemoglobin 31.2H, Mean Corpuscular Hemoglobin Concent 33.6, Red Cell Distribution Width 13.1, Platelet Count 127L, Mean Platelet Volume 10.6H, Neutrophils (%) (Auto) 65.9, Lymphocytes (%) (Auto) 20.8, Monocytes (%) (Auto) 9.5, Eosinophils (%) (Auto) 2.9, Basophils (%) (Auto) 0.8, Sodium Level 145, Potassium Level 3.6, Chloride Level 105, Carbon Dioxide Level 28, Anion Gap 12, Blood Urea Nitrogen 11, Creatinine 0.8, Estimat Glomerular Filtration Rate , Glucose Level 104, Calcium Level 8.8 VALERIE ROBISON Mar 16, 2017 21:51
--- NOTE | 2017-03-17 12:50 | Discharge Summary ---
Discharge Summary Hospital Course Date of Admission Mar 11, 2017 at 13:44 Date of Discharge Mar 16, 2017 at 17:20 Admitting Diagnosis facial cellulitis HPI Jocelyn Marsh is a 71 year old female who was admitted on Mar 11, 2017 at 13: 44 for Facial Celulitis Hospital Course dc summary #[id number] Discharge Condition Upon Discharge: stable Discharge Disposition Patient was discharged to Home with Home Health(06) Discharge Diagnoses: Ibrahima ([facility]),Madonna GARCIA Mar 17, 2017 12:50
--- NOTE | 2017-03-17 16:59 | General Progress Note ---
Assessment/Plan Assessment/Plan 1. Anemia of chronic disease. --> monitor counts 2. Anemia of iron deficiency. 3. Decreased hemoglobin and hematocrit, rule out gastrointestinal bleed. 4. Thrombocytopenia, multifactorial. 5. Coronary artery disease. 6. Hypertension. 8. Cellulitis, right face and neck area. Symptomatic right trigeminal neuralgia. --> likely herpes zoster, on acyclovir 9. Secondary bacterial abscess in the right face and the neck area. Subjective Date patient seen: Mar 16, 2017 Constitutional: Reports: no symptoms HEENT: Reports: no symptoms Cardiovascular: Reports: no symptoms Respiratory: Reports: no symptoms Gastrointestinal/Abdominal: Reports: no symptoms Genitourinary: Reports: no symptoms Neurologic/Psychiatric: Reports: no symptoms Endocrine: Reports: no symptoms Hematologic/Lymphatic: Reports: anemia Allergies: Coded Allergies: No Known Allergies (Unverified , 01/06/17) Subjective facial pain Objective Last 24 Hour Vital Signs Date Time Temp Pulse Resp B/P Pulse Ox O2 Delivery O2 Flow Rate FiO2 03/17/17 03:26 69 20 Room Air 21 Intake and Output 03/16/17 03/17/17 19:00 07:00 Intake Total 450 ml Balance 450 ml Intake Oral 450 ml # Voids 1 Height (Feet): 5 Height (Inches): 6.00 Weight (Pounds): 203 General Appearance: mild distress Neck: normal alignment Cardiovascular: regular rhythm Respiratory/Chest: no respiratory distress Abdomen: non tender Extremities: non-tender Skin: warm/dry, no diaphoresis Jarrett Rivera Mar 17, 2017 16:59
--- NOTE | 2017-03-18 10:46 | Discharge Summary 2 SIG ---
DATE OF ADMISSION: 03/11/2017 DATE OF DISCHARGE: 03/16/2017 The patient admitted under Dr. Mac. REASON FOR ADMISSION: This is a 71-year-old female with a history of hypertension and RI, presented with right-sided facial pain for three days. The patient reported that she had seen her primary medical doctor who gave her prescription for azithromycin, which was not helping. The patient also reported pain in the right ear, which now is wide spreading and radiating to her face. The patient reported subjective fever and chills. Denied blurry vision or change in vision. Denied neck pain, nausea, or vomiting. No chest pain. No shortness of breath. Workup in the ED revealed low-grade fever of 99.5, blood pressure elevated 197/76, pulse oximetry stable on room air. No leukocytosis. Stable hemoglobin and hematocrit. Electrolytes stable. D-dimer was 786. CT of the head revealed no acute intracranial bleeding or mass effect. It demonstrated age indeterminate lacunar infarct, anterior limb right internal capsule. CT of the facial bones demonstrated no cervical mass or adenopathy. No evidence of facial abscess. No other abnormality to explain stated clinical history of right ear or face pain. The patient also undergone at that time venous duplex due to the elevated D-dimer, which was negative for evidence of acute DVT. The patient was admitted for further management. ADMITTING DIAGNOSES: Include: 1. Facial cellulitis. 2. Hypertension. 3. History of cerebrovascular accident. HOSPITAL COURSE: The patient was admitted. ID consult was requested along with the Neurology consult. The patient was started on empiric antibiotic, pain management, and symptomatic treatment along with the ear drops. Neurologist had seen and evaluated the patient and concluded acute onset of right face and neck edema and acute tenderness with skin lesion resembling the herpes zoster. The patient also had a symptomatic right trigeminal neuralgia in V1, V2, and V3. He recommended to continue her antibiotic as ordered by ID. He added intravenous acyclovir and started on Tegretol 200 mg b.i.d. and titrated to 400, continue pain management. He also ordered HSV and VZV titers and bacterial cultures. Infectious Diseases doctor continued acyclovir for right facial herpes zoster. Continue vancomycin, cefepime, and Flagyl empirically for otitis. Stool C. difficile was negative. Flagyl stopped. Ear culture positive for Staph coagulase-negative. Brain MRI done on the next day per Neurology recommendation and revealed no evidence of acute intracranial pathology, mild sinus disease. Supplemental oxygen provided as needed to keep saturation above 92%. The patient's pulse oximetry was stable on room air. Pulmonary toilet provided as needed. CPAP continued at night. Blood pressure was managed with current regimen. DVT and GI prophylaxis provided. Potassium was replaced. Bowel regimen instituted. Titer of IgG and antibody came high, more than 4000. The patient clinically improved. Pain controlled. The patient was stable for discharge home with home health services. Per ID recommendation, continue Augmentin for additional five days and continue valacyclovir to complete a course of two weeks. DISCHARGE DIAGNOSES: Include: 1. Sepsis. 2. Right facial herpes zoster. 3. Facial cellulitis with otitis media, right ear. 4. Symptomatic right trigeminal neuralgia. 5. Hypertension. 6. Obstructive sleep apnea. 7. Hypokalemia. DISCHARGE MEDICATIONS: See medication reconciliation list. Continue Augmentin for additional five days as per ID recommendation and continue valacyclovir to complete the course of therapy for two weeks. Prescription was called to pharmacy by ID doctor. DISCHARGE INSTRUCTIONS: The patient was discharged home with home health services. Follow up with primary medical doctor. Adrian Mac D.O. I have been assigned to dictate discharge summary on this account and I was not involved in the patient's management. Madonna dotsoneileen N.P. DR: TOYIN JOB#: [id number] CC:
== END 2017-03-16 17:20 | disposition home health service (06) | DRG 872 ==
LOC: EMR 09:26 → 4W 13:44 → EDBEDREQ 14:43
DX: A41.9 Sepsis, unspecified organism (principal); N17.9 Acute kidney failure, unspecified; J44.9 Chronic obstructive pulmonary disease, unspecified; D69.6 Thrombocytopenia, unspecified; L02.01 Cutaneous abscess of face; B02.22 Postherpetic trigeminal neuralgia; L03.211 Cellulitis of face; D63.8 Anemia in other chronic diseases classified elsewhere; H66.91 Otitis media, unspecified, right ear; G50.0 Trigeminal neuralgia; Z86.73 Personal history of transient ischemic attack (TIA), and cerebral infarction without residual deficits; B96.89 Other specified bacterial agents as the cause of diseases classified elsewhere; I10 Essential (primary) hypertension; I25.2 Old myocardial infarction; G47.33 Obstructive sleep apnea (adult) (pediatric); I25.10 Atherosclerotic heart disease of native coronary artery without angina pectoris; K21.9 Gastro-esophageal reflux disease without esophagitis; D50.9 Iron deficiency anemia, unspecified; Z87.891 Personal history of nicotine dependence; E78.5 Hyperlipidemia, unspecified; R62.7 Adult failure to thrive; H57.10 Ocular pain, unspecified eye
CPT/HCPCS: 36415; 70450; 70488; 70553; 71010; 80048; 80053; 80202; 82378; 82728; 83540; 83550; 83735; 85025; 85379; 85651; 86140; 86304; 86787; 87070; 87075; 87205; 87324; 93970; 94664; 94760; A9585; J2405; J8499; S0077

== ENCOUNTER 2020-01-26 17:13 | Emergency (ER) | payer MEDICARE, MEDICAID ==
[~2020-01-26] VITALS: Ht 170.2 cm; Wt 72.6 kg
[~2020-01-26 17:13] MED LIST changes: +AZITHROMYCIN250 MG ORAL
[2020-01-26 17:18] VITALS: BP 150/105
--- NOTE | 2020-01-26 18:17 | Emergency Room Report ---
History of Present Illness General Chief Complaint: Multiple Trauma/Fall Source: Patient, EMS Present Illness HPI 74-year-old female with history of hypertension, MD, esophagitis, here status post mechanical fall. Patient was at a store as she slipped on salsa and landed on left shoulder and left hip. Complains of 10 on 10 left shoulder and left hip pain. Denies any tingling numbness. Denies any pain radiation. Denies head injury, loss of consciousness, dizziness, blurry vision, nausea vomiting. Denies chest pain, shortness of breath, abdominal pain, lower back pain, saddle paresthesia, urinary bowel incontinence. Has not taken medication for symptom relief. Reports that she takes amlodipine, hydrochlorothiazide, daily dose of aspirin. Last MD was 2 years ago patient does not have any history of stent placement. Denies any history of CVA or TIA. Patient reports that she is compliant with taking her medication. Allergies: Coded Allergies: No Known Allergies (Unverified , 01/06/17) COVID-19 Screening Contact w/high risk pt: No Recent Travel to affected area: No Experienced COVID-19 symptoms?: No COVID-19 Testing performed IMPORT/[employer] FREIGHT FORWARDER: No Patient History Past Medical History: see triage record Past Surgical History: none Pertinent Family History: none Last Menstrual Period: na Now: No Immunizations: UTD Reviewed Nursing Documentation: PMH: Agreed; PSxH: Agreed Nursing Documentation-PMH Past Medical History: No History, Except For Hx Cardiac Problems: Yes Hx Hypertension: Yes Hx Cancer: No Hx Gastrointestinal Problems: No Review of Systems All Other Systems: negative except mentioned in HPI Physical Exam Vital Signs Date Time Temp Pulse Resp B/P (MAP) Pulse Ox O2 Delivery O2 Flow Rate FiO2 01/26/20 17:11 98.4 72 18 150/105 (120) 98 Room Air Sp02 EP Interpretation: reviewed, normal General Appearance: no apparent distress, alert, GCS 15, non-toxic Head: normocephalic, atraumatic Eyes: bilateral eye normal inspection, bilateral eye PERRL ENT: hearing grossly normal, normal pharynx, no angioedema, normal voice Neck: full range of motion, supple, thyroid normal, no meningismus, supple/symm /no masses Respiratory: chest non-tender, lungs clear, normal breath sounds, no rhonchi, no respiratory distress, no retraction, no wheezing, speaking full sentences Cardiovascular #1: regular rate, rhythm, no edema, no murmur Cardiovascular #2: 2+ carotid (R), 2+ carotid (L), 2+ radial (R), 2+ radial (L) , 2+ femoral (R), 2+ femoral (L), 2+ dorsalis pedis (R), 2+ dorsalis pedis (L) Gastrointestinal: normal bowel sounds, non tender, soft, non-distended, no guarding, no rebound Rectal: deferred Genitourinary: no CVA tenderness Musculoskeletal: back normal, no calf tenderness, swelling - left shoulder Neurologic: alert, motor strength/tone normal, oriented x3, sensory intact, responsive, speech normal Psychiatric: judgement/insight normal, memory normal, mood/affect normal, no suicidal/homicidal ideation Skin: no rash Lymphatic: no adenopathy Medical Decision Making PA Attestation All diagnoses and treatment plans were reviewed and discussed with my supervising physician Dr. Maddox Diagnostic Impression: Primary Impression: Sprain of left hip Additional Impressions: Sprain of shoulder, left Pulmonary nodule Hepatic cyst ER Course 74-year-old female with history of hypertension, MD, esophagitis, here status post mechanical fall. Patient was at a store as she slipped on salsa and landed on left shoulder and left hip. Complains of 10 on 10 left shoulder and left hip pain. Denies any tingling numbness. Denies any pain radiation. Denies head injury, loss of consciousness, dizziness, blurry vision, nausea vomiting. Denies chest pain, shortness of breath, abdominal pain, lower back pain, saddle paresthesia, urinary bowel incontinence. Has not taken medication for symptom relief. Reports that she takes amlodipine, hydrochlorothiazide, daily dose of aspirin. Last MD was 2 years ago patient does not have any history of stent placement. Denies any history of CVA or TIA. Patient reports that she is compliant with taking her medication. Ddx considered but are not limited to: Hip fracture versus contusion, shoulder dislocation versus fracture versus contusion left shoulder sprain, pulmonary nodule, hepatic cyst versus rotator cuff tear injury Vital signs: are WNL, pt. is afebrile H&PE are most consistent with: Hepatic cyst, pulmonary nodule, left shoulder sprain, left hip sprain ORDERS: CT chest abdomen pelvis no contrast, CT head no contrast, left shoulder x-ray, CBC, CMP, PT PTT INR, EKG, Tylenol, Robaxin ER intervention: NS bolus DISCHARGE: At this time pt. is stable for d/c to home. Will provide printed patient care instructions, and any necessary prescriptions. Care plan and follow up instructions have been discussed with the patient prior to discharge. Take medication as directed, follow-up with your primary care provider for referral to software applications specialist, also follow-up with primary care provider for incidental finding of the pulmonary nodule and hepatic cyst. If worsening symptoms return to the emergency room EKG Diagnostic Results Rate: bradycardiac Rhythm: other - Bradycardic ST Segments: no acute changes Other Impression No acute ST changes Other X-Ray Diagnostic Results Other X-Ray Diagnostic Results : X-Ray ordered: Left shoulder # of Views/Limited Vs Complete: 3 View Indication: Pain EP Interpretation: Yes PA Xray: Interpretation reviewed, by supervising MD, and agrees with findings. Interpretation: no dislocation, no soft tissue swelling, no fractures Impression: No acute disease Electronically Signed by: Mandi Lauren PA-C CT/MRI/US Diagnostic Results CT/MRI/US Diagnostic Results #1: Imaging Test Ordered: CT chest abdomen pelvis no contrast Impression FINDINGS: There are innumerable hepatic cystic lesions. These are larger than typical benign biliary hamartomata/Von [place] complexes. However, metastases are felt to be unlikely. Nonemergent MRI to further assess. They could obscure a hepatic laceration or other injury, but no clear traumatic sequela. No hemoperitoneum or pneumoperitoneum. Trace free pelvic fluid is of low density. Left renal cysts. No perinephric hematoma. There is no bowel obstruction or perforation. Aortoiliac atherosclerosis. No aneurysm. Mild body wall edema. Small fatty right paraumbilical hernias. Lumbar spondylosis is most pronounced at L5-S1. No acute fracture. IMPRESSION: No acute abdominopelvic injury. Innumerable hepatic hypodensities appear to be cystic, likely benign. Nonemergent hepatic protocol MRI could confirm. Other incidental findings as detailed above. CT/MRI/US Diagnostic Results #2: Imaging Test Ordered: CT head no contrast Impression FINDINGS: There is no intracranial hemorrhage or mass effect. No clear acute large vessel territory infarct. Mild involutional and microvascular ischemic changes. The calvarium is intact. No sinus or mastoid effusion. IMPRESSION: No acute brain or skull injury. Last Vital Signs Date Time Temp Pulse Resp B/P (MAP) Pulse Ox O2 Delivery O2 Flow Rate FiO2 01/26/20 17:18 72 18 Room Air 01/26/20 17:18 98.4 150/105 98 Disposition: HOME, SELF-CARE Condition: Stable Referrals: NOT CHOSEN IPA/MD,REFERRING (PCP) Patient Instructions: Hip Pain, Shoulder Sprain Additional Instructions: Take medication as directed, follow-up with your primary care provider for referral to software applications specialist, also follow-up with primary care provider for incidental finding of the pulmonary nodule and hepatic cyst. If worsening symptoms return to the emergency room Mandi Bone Jan 26, 2020 18:17
--- NOTE | 2020-01-26 18:32 | Diagnostic Imaging Report ---
EXAM: CT Head Without Intravenous Contrast CLINICAL HISTORY: TRAUMA TECHNIQUE: Axial computed tomography images of the head/brain without intravenous contrast. CTDI is 53.4 mGy and DLP is 1098.9 mGy-cm. One or more of the following dose reduction techniques were used: automated exposure control, adjustment of the mA and/or kV according to patient size, use of iterative reconstruction technique. COMPARISON: 03/11/17 FINDINGS: There is no intracranial hemorrhage or mass effect. No clear acute large vessel territory infarct. Mild involutional and microvascular ischemic changes. The calvarium is intact. No sinus or mastoid effusion. IMPRESSION: No acute brain or skull injury.
--- NOTE | 2020-01-26 19:04 | Diagnostic Imaging Report ---
EXAM: CT Chest Without Intravenous Contrast CLINICAL HISTORY: TRAUMA TECHNIQUE: Axial computed tomography images of the chest without intravenous contrast. CTDI is 8.1 mGy and DLP is 5 x 4.2 mGy-cm. One or more of the following dose reduction techniques were used: automated exposure control, adjustment of the mA and/or kV according to patient size, use of iterative reconstruction technique. COMPARISON: No relevant prior studies available. FINDINGS: There is mild dependent atelectasis. No clear acute contusion or other traumatic abnormality. There is a 6 mm right upper lobe nodule is seen on series 4, image 29. Recommend follow-up CT in 6-12 months. No pneumothorax or hemothorax. No mediastinal hematoma to suggest great vessel injury. Aortic and coronary atherosclerosis. No aneurysm. No significant pericardial effusion. No acute fracture. IMPRESSION: No acute thoracic injury. 6 mm RUL nodule. Recommend follow-up CT in 6/7/12 months. EXAM: CT Abdomen and Pelvis Without Intravenous Contrast CLINICAL HISTORY: TRAUMA TECHNIQUE: Axial computed tomography images of the abdomen and pelvis without intravenous contrast. CTDI is 8.1 mGy and DLP is 554.2 mGy-cm. One or more of the following dose reduction techniques were used: automated exposure control, adjustment of the mA and/or kV according to patient size, use of iterative reconstruction technique. COMPARISON: No relevant prior studies available. FINDINGS: There are innumerable hepatic cystic lesions. These are larger than typical benign biliary hamartomata/Von [place] complexes. However, metastases are felt to be unlikely. Nonemergent MRI to further assess. They could obscure a hepatic laceration or other injury, but no clear traumatic sequela. No hemoperitoneum or pneumoperitoneum. Trace free pelvic fluid is of low density. Left renal cysts. No perinephric hematoma. There is no bowel obstruction or perforation. Aortoiliac atherosclerosis. No aneurysm. Mild body wall edema. Small fatty right paraumbilical hernias. Lumbar spondylosis is most pronounced at L5-S1. No acute fracture. IMPRESSION: No acute abdominopelvic injury. Innumerable hepatic hypodensities appear to be cystic, likely benign. Nonemergent hepatic protocol MRI could confirm. Other incidental findings as detailed above.
[2020-01-26 19:32] LABS: EOSINOPHILS % (AUTO) 0.9 % (0.0-3.0); HEMATOCRIT 35.8 % (37.0-47.0); HEMOGLOBIN 11.7 G/DL (12.0-16.0); LYMPHOCYTES % (AUTO) 29.9 % (20.0-45.0); MEAN CORPUSCULAR VOLUME 91 FL (80-99); NEUTROPHILS % (AUTO) 59.2 % (45.0-75.0); PLATELET COUNT 100 K/UL (150-450); RED BLOOD COUNT 3.94 M/UL (4.20-5.40); RED CELL DISTRIBUTION WIDTH 14.9 % (11.6-14.8); WHITE BLOOD COUNT 5.9 K/UL (4.8-10.8)
[2020-01-26 19:34] VITALS: BP 158/69
--- NOTE | 2020-01-26 19:36 | Diagnostic Imaging Report ---
EXAM: XR Left Shoulder Complete, 2 or More Views CLINICAL HISTORY: TRAUMA TECHNIQUE: Two or more views of the left shoulder. COMPARISON: No relevant prior studies available. FINDINGS: Bones/joints: Osteopenia. Mild calcific tendinosis at the supraspinatus insertion/greater tuberosity. Degenerative spurring of the left acromioclavicular joint. No acute fracture. No dislocation. Soft tissues: Unremarkable. IMPRESSION: No fracture or dislocation.
[2020-01-26 19:49] LABS: ALANINE AMINOTRANSFERASE 17 U/L (12-78); ALBUMIN 3.4 G/DL (3.4-5.0); ALBUMIN/GLOBULIN RATIO 1.2 (1.0-2.7); ALKALINE PHOSPHATASE 69 U/L (46-116); ANION GAP 10 mmol/L (5-15); ASPARTATE AMINO TRANSFERASE 17 U/L (15-37); BILIRUBIN,TOTAL 1.1 MG/DL (0.2-1.0); BLOOD UREA NITROGEN 12 mg/dL (7-18); CALCIUM 8.3 MG/DL (8.5-10.1); CARBON DIOXIDE 28 MMOL/L (21-32); CHLORIDE 108 MMOL/L (98-107); CREATININE 0.9 MG/DL (0.55-1.30); POTASSIUM 2.9 MMOL/L (3.5-5.1); SODIUM 146 MMOL/L (136-145)
[2020-01-26 20:02] LABS: BILIRUBIN,DIRECT 0.2 MG/DL (0.0-0.3)
[2020-01-26] MEDS ORDERED: ROBAXIN-500MG ORAL (20:05)
[2020-01-26] MEDS ORDERED: TYLENOL EXTRA500 MG ORAL (20:05)
[2020-01-26] MEDS ORDERED: Ketorolac 30mg Inj IV ONE (20:15)
[2020-01-26 21:04] VITALS: BP 155/68
== END 2020-01-26 21:04 | disposition home or self-care (01) ==
LOC: EDBD 17:13 → EMR 17:30
DX: S73.102A Unspecified sprain of left hip, initial encounter (principal); S43.402A Unspecified sprain of left shoulder joint, initial encounter; R91.1 Solitary pulmonary nodule; K76.89 Other specified diseases of liver; I10 Essential (primary) hypertension; I25.2 Old myocardial infarction; W01.0XXA Fall on same level from slipping, tripping and stumbling without subsequent striking against object, initial encounter; Y93.01 Activity, walking, marching and hiking; Y92.512 Supermarket, store or market as the place of occurrence of the external cause
CPT/HCPCS: 36415; 70450; 71250; 74176; 80053; 82248; 85025; 85610; 85730; 93005; 96361; 96374; 99284; J7030; J8499